=== PATIENT | male | born 1945 | race Caucasian/White ===

== ENCOUNTER 2018-08-06 12:15 | Emergency (ER) | payer MEDICARE, BC ==
[~2018-08-06] VITALS: Wt 113.6 kg
[2018-08-06] MEDS ORDERED: ASPIR LOW81 MG PO (12:28)
[2018-08-06] MEDS ORDERED: CARDURA8 MG PO (12:29)
[2018-08-06] MEDS ORDERED: ALDACTONE 25MG25 MG PO (12:29)
[2018-08-06] MEDS ORDERED: MOBIC15 M1 PO (12:29)
[2018-08-06] MEDS ORDERED: LEVOTHYROXINE0.15 MG PO (12:29)
[2018-08-06] MEDS ORDERED: LOSARTAN POTASS50 M1 PO (12:29)
[2018-08-06] MEDS ORDERED: METFORMIN HCL500 M2 PO (12:30)
[2018-08-06 12:58] LABS: HEMATOCRIT 36.2 % (42.0-52.0); HEMOGLOBIN 12.1 g/dL (13.5-18.0); MEAN CELL VOLUME 87 fl (78-100); MEAN CORPUSCULAR HEMOGLOBIN 29 pg (27-31); MEAN CORPUSCULAR HGB CONC 33 g/dL (33-37); MEAN PLATELET VOLUME 10.1 fl (7.4-10.4); PLATELET COUNT 448 K/mm3 (130-400); RED BLOOD COUNT 4.14 M/mm3 (4.20-5.60); RED CELL DISTRIBUTION WIDTH 14.6 % (11.5-14.5); WHITE BLOOD COUNT 10.5 K/mm3 (4.8-10.8)
[2018-08-06 13:19] LABS: NEUTROPHILS 44 % (42-75)
[2018-08-06 13:20] LABS: LYMPHOCYTE 39 % (20-51); MONOCYTE 13 % (3-10)
[2018-08-06 14:24] VITALS: BP 121/59
== END 2018-08-06 14:25 | disposition home or self-care (01) ==
LOC: ED 12:15
PROVIDERS: Nurse Practitioner
DX: T82.838A Hemorrhage due to vascular prosthetic devices, implants and grafts, initial encounter (principal); E11.9 Type 2 diabetes mellitus without complications; I10 Essential (primary) hypertension; Z79.84 Long term (current) use of oral hypoglycemic drugs; C22.9 Malignant neoplasm of liver, not specified as primary or secondary; Z85.038 Personal history of other malignant neoplasm of large intestine; Z85.828 Personal history of other malignant neoplasm of skin; Z79.82 Long term (current) use of aspirin; Z79.899 Other long term (current) drug therapy; Z87.891 Personal history of nicotine dependence

== ENCOUNTER → 2018-08-08 | Outpatient (CLI) | payer MEDICARE, BC ==
[2018-08-06 14:24] VITALS: BP 121/59
[~2018-08-08] MED LIST: ALDACTONE 25MG25 MG PO; ASPIR LOW81 MG PO; CARDURA8 MG PO; LEVOTHYROXINE0.15 MG PO; LOSARTAN POTASS50 M1 PO; METFORMIN HCL500 M2 PO; MOBIC15 M1 PO
[2018-08-08 15:41] LABS: ALBUMIN 4.1 g/dL (3.5-5.0); CALCIUM 9.2 mg/dL (8.4-10.2); POTASSIUM 5.2 mmol/L (3.6-5.0); TOTAL BILIRUBIN 0.5 mg/dL (0.2-1.3); TOTAL PROTEIN 7.1 g/dL (6.3-8.2)
[2018-08-08 15:57] LABS: HEMOGLOBIN 12.8 g/dL (13.5-18.0); MEAN CELL VOLUME 87 fl (78-100); MEAN CORPUSCULAR HEMOGLOBIN 29 pg (27-31); MEAN CORPUSCULAR HGB CONC 34 g/dL (33-37); MEAN PLATELET VOLUME 10.8 fl (7.4-10.4); RED BLOOD COUNT 4.35 M/mm3 (4.20-5.60); RED CELL DISTRIBUTION WIDTH 14.5 % (11.5-14.5); WHITE BLOOD COUNT 8.9 K/mm3 (4.8-10.8)
[2018-08-08 16:31] LABS: PLATELET COUNT 515 K/mm3 (130-400)
[2018-08-08 16:32] LABS: LYMPHOCYTE 45 % (20-51); MONOCYTE 16 % (3-10); NEUTROPHILS 35 % (42-75)
== END ==
LOC: LAB 14:29
PROVIDERS: Internal Medicine
DX: C18.7 Malignant neoplasm of sigmoid colon (principal)

== ENCOUNTER → 2018-08-21 | Outpatient (CLI) | payer MEDICARE, BC ==
[2018-08-06 14:24] VITALS: BP 121/59
[2018-08-21 16:05] LABS: ALBUMIN 4.1 g/dL (3.5-5.0); BASO # 0.1 (0.02-0.10); CALCIUM 9.4 mg/dL (8.4-10.2); EOS # 0.3 (0.04-0.40); EOS % 2.1 % (0.0-4.0); HEMATOCRIT 39.9 % (42.0-52.0); HEMOGLOBIN 13.4 g/dL (13.5-18.0); MEAN CELL VOLUME 87 fl (78-100); MEAN CORPUSCULAR HEMOGLOBIN 29 pg (27-31); MEAN CORPUSCULAR HGB CONC 34 g/dL (33-37); MEAN PLATELET VOLUME 10.7 fl (7.4-10.4); MONO # 1.3 (0.20-0.80); NEU # 5.6 (1.40-6.50); PLATELET COUNT 494 K/mm3 (130-400); POTASSIUM 4.8 mmol/L (3.6-5.0); RED BLOOD COUNT 4.59 M/mm3 (4.20-5.60); RED CELL DISTRIBUTION WIDTH 14.6 % (11.5-14.5); TOTAL BILIRUBIN 0.4 mg/dL (0.2-1.3); TOTAL PROTEIN 7.1 g/dL (6.3-8.2); WHITE BLOOD COUNT 12.2 K/mm3 (4.8-10.8)
[2018-08-21 16:11] LABS: LYMPH# 4.9 (1.50-4.00)
[2018-08-22 00:20] LABS: CARCINOEMBRYONIC ANTIGEN 5.8 ng/mL (0.0-5.0)
== END ==
LOC: LAB 14:31
PROVIDERS: Internal Medicine
DX: C18.7 Malignant neoplasm of sigmoid colon (principal)

== ENCOUNTER → 2018-09-04 | Outpatient (CLI) | payer MEDICARE, BC ==
[2018-08-06 14:24] VITALS: BP 121/59
[2018-09-04 15:05] LABS: HEMATOCRIT 41.3 % (42.0-52.0); HEMOGLOBIN 13.9 g/dL (13.5-18.0); MEAN CELL VOLUME 88 fl (78-100); MEAN CORPUSCULAR HEMOGLOBIN 30 pg (27-31); MEAN CORPUSCULAR HGB CONC 34 g/dL (33-37); MEAN PLATELET VOLUME 10.1 fl (7.4-10.4); PLATELET COUNT 440 K/mm3 (130-400); RED BLOOD COUNT 4.67 M/mm3 (4.20-5.60); RED CELL DISTRIBUTION WIDTH 15.4 % (11.5-14.5); WHITE BLOOD COUNT 9.3 K/mm3 (4.8-10.8)
[2018-09-04 15:18] LABS: ALBUMIN 4.4 g/dL (3.5-5.0); CALCIUM 9.7 mg/dL (8.4-10.2); POTASSIUM 5.1 mmol/L (3.6-5.0); TOTAL BILIRUBIN 0.5 mg/dL (0.2-1.3); TOTAL PROTEIN 7.3 g/dL (6.3-8.2)
[2018-09-04 16:31] LABS: LYMPHOCYTE 65 % (20-51); MONOCYTE 8 % (3-10); NEUTROPHILS 22 % (42-75)
[2018-09-04 16:33] LABS: POLYCHROMASIA 1+
== END ==
LOC: LAB 14:32
PROVIDERS: Internal Medicine
DX: C18.9 Malignant neoplasm of colon, unspecified (principal)

== ENCOUNTER → 2018-09-18 | Outpatient (CLI) | payer MEDICARE, BC ==
[2018-09-18 15:22] LABS: ALBUMIN 4.2 g/dL (3.5-5.0); CALCIUM 9.1 mg/dL (8.4-10.2); POTASSIUM 4.8 mmol/L (3.6-5.0); TOTAL BILIRUBIN 0.4 mg/dL (0.2-1.3); TOTAL PROTEIN 7.2 g/dL (6.3-8.2)
[2018-09-18 16:22] LABS: BASO # 0.1 (0.02-0.10); EOS # 0.3 (0.04-0.40); EOS % 3.2 % (0.0-4.0); HEMATOCRIT 39.5 % (42.0-52.0); HEMOGLOBIN 13.5 g/dL (13.5-18.0); MEAN CELL VOLUME 89 fl (78-100); MEAN CORPUSCULAR HEMOGLOBIN 30 pg (27-31); MEAN CORPUSCULAR HGB CONC 34 g/dL (33-37); MEAN PLATELET VOLUME 10.4 fl (7.4-10.4); MONO # 1.2 (0.20-0.80); NEU # 3.9 (1.40-6.50); PLATELET COUNT 464 K/mm3 (130-400); RED BLOOD COUNT 4.44 M/mm3 (4.20-5.60); RED CELL DISTRIBUTION WIDTH 16.3 % (11.5-14.5); WHITE BLOOD COUNT 10.4 K/mm3 (4.8-10.8)
[2018-09-18 16:28] LABS: LYMPH# 4.9 (1.50-4.00)
[2018-09-19 03:35] LABS: CARCINOEMBRYONIC ANTIGEN 3.9 ng/mL (0.0-5.0)
== END ==
LOC: LAB 14:38
PROVIDERS: Internal Medicine
DX: C18.9 Malignant neoplasm of colon, unspecified (principal)

== ENCOUNTER → 2018-10-02 | Outpatient (CLI) | payer MEDICARE, BC ==
[2018-10-02 15:15] LABS: HEMATOCRIT 40.3 % (42.0-52.0); HEMOGLOBIN 13.4 g/dL (13.5-18.0); MEAN CELL VOLUME 91 fl (78-100); MEAN CORPUSCULAR HEMOGLOBIN 30 pg (27-31); MEAN CORPUSCULAR HGB CONC 33 g/dL (33-37); MEAN PLATELET VOLUME 9.9 fl (7.4-10.4); PLATELET COUNT 448 K/mm3 (130-400); RED BLOOD COUNT 4.45 M/mm3 (4.20-5.60); RED CELL DISTRIBUTION WIDTH 17.1 % (11.5-14.5); WHITE BLOOD COUNT 10.4 K/mm3 (4.8-10.8)
[2018-10-02 15:22] LABS: ALBUMIN 4.3 g/dL (3.5-5.0); CALCIUM 9.6 mg/dL (8.4-10.2); POTASSIUM 4.8 mmol/L (3.6-5.0); TOTAL BILIRUBIN 0.4 mg/dL (0.2-1.3); TOTAL PROTEIN 7.1 g/dL (6.3-8.2)
[2018-10-02 16:08] LABS: NEUTROPHILS 18 % (42-75)
[2018-10-02 16:09] LABS: LYMPHOCYTE 60 % (20-51); MONOCYTE 18 % (3-10); POLYCHROMASIA 1+
== END ==
LOC: LAB 14:28
PROVIDERS: Internal Medicine
DX: C18.9 Malignant neoplasm of colon, unspecified (principal)

== ENCOUNTER → 2018-10-17 | Outpatient (CLI) | payer MEDICARE, BC ==
[2018-10-17 16:00] LABS: HEMATOCRIT 39.8 % (42.0-52.0); HEMOGLOBIN 13.4 g/dL (13.5-18.0); MEAN CELL VOLUME 92 fl (78-100); MEAN CORPUSCULAR HEMOGLOBIN 31 pg (27-31); MEAN CORPUSCULAR HGB CONC 34 g/dL (33-37); MEAN PLATELET VOLUME 10.4 fl (7.4-10.4); PLATELET COUNT 402 K/mm3 (130-400); RED BLOOD COUNT 4.34 M/mm3 (4.20-5.60); RED CELL DISTRIBUTION WIDTH 18.2 % (11.5-14.5); WHITE BLOOD COUNT 9.4 K/mm3 (4.8-10.8)
[2018-10-17 16:42] LABS: ALBUMIN 4.2 g/dL (3.5-5.0); CALCIUM 9.9 mg/dL (8.4-10.2); POTASSIUM 4.9 mmol/L (3.6-5.0); TOTAL BILIRUBIN 0.2 mg/dL (0.2-1.3); TOTAL PROTEIN 6.5 g/dL (6.3-8.2)
[2018-10-17 18:09] LABS: LYMPHOCYTE 54 % (20-51); MONOCYTE 10 % (3-10); NEUTROPHILS 34 % (42-75)
[2018-10-18 01:08] LABS: CARCINOEMBRYONIC ANTIGEN 2.7 ng/mL (0.0-5.0)
== END ==
LOC: LAB 15:11
PROVIDERS: Internal Medicine
DX: C18.9 Malignant neoplasm of colon, unspecified (principal)

== ENCOUNTER → 2018-10-30 | Outpatient (CLI) | payer MEDICARE, BC ==
[2018-10-30 15:56] LABS: HEMATOCRIT 40.9 % (42.0-52.0); HEMOGLOBIN 13.6 g/dL (13.5-18.0); MEAN CELL VOLUME 93 fl (78-100); MEAN CORPUSCULAR HEMOGLOBIN 31 pg (27-31); MEAN CORPUSCULAR HGB CONC 33 g/dL (33-37); MEAN PLATELET VOLUME 10.2 fl (7.4-10.4); PLATELET COUNT 419 K/mm3 (130-400); RED BLOOD COUNT 4.41 M/mm3 (4.20-5.60); RED CELL DISTRIBUTION WIDTH 18.2 % (11.5-14.5); WHITE BLOOD COUNT 9.6 K/mm3 (4.8-10.8)
[2018-10-30 17:04] LABS: ALBUMIN 4.3 g/dL (3.5-5.0); CALCIUM 9.6 mg/dL (8.4-10.2); POTASSIUM 4.5 mmol/L (3.6-5.0); TOTAL BILIRUBIN 0.2 mg/dL (0.2-1.3); TOTAL PROTEIN 7.1 g/dL (6.3-8.2)
[2018-10-30 17:15] LABS: LYMPHOCYTE 60 % (20-51); MONOCYTE 10 % (3-10); NEUTROPHILS 28 % (42-75); NUCLEATED RED BLOOD CELL 4 (0-6)
== END ==
LOC: LAB 15:18
PROVIDERS: Internal Medicine
DX: C18.9 Malignant neoplasm of colon, unspecified (principal)

== ENCOUNTER → 2018-11-11 | Outpatient (CLI) | payer MEDICARE, BC ==
[2018-11-11 10:31] LABS: HEMATOCRIT 40.3 % (42.0-52.0); HEMOGLOBIN 13.3 g/dL (13.5-18.0); MEAN CELL VOLUME 93 fl (78-100); MEAN CORPUSCULAR HEMOGLOBIN 31 pg (27-31); MEAN CORPUSCULAR HGB CONC 33 g/dL (33-37); MEAN PLATELET VOLUME 11.1 fl (7.4-10.4); PLATELET COUNT 375 K/mm3 (130-400); RED BLOOD COUNT 4.34 M/mm3 (4.20-5.60); RED CELL DISTRIBUTION WIDTH 17.4 % (11.5-14.5); WHITE BLOOD COUNT 9.3 K/mm3 (4.8-10.8)
[2018-11-11 10:36] LABS: ALBUMIN 4.1 g/dL (3.5-5.0); CALCIUM 9.3 mg/dL (8.4-10.2); POTASSIUM 4.5 mmol/L (3.6-5.0); TOTAL BILIRUBIN 0.4 mg/dL (0.2-1.3); TOTAL PROTEIN 6.7 g/dL (6.3-8.2)
[2018-11-11 11:22] LABS: BAND 1 % (0-10); LYMPHOCYTE 38 % (20-51); MONOCYTE 4 % (3-10); NEUTROPHILS 53 % (42-75)
[2018-11-11 11:23] LABS: ACANTHROCYTES 2+; OVALOCYTES 1+; TARGET CELLS 1+
== END ==
LOC: RAD 08:00
PROVIDERS: Internal Medicine
DX: R91.8 Other nonspecific abnormal finding of lung field (principal); K76.9 Liver disease, unspecified; E27.9 Disorder of adrenal gland, unspecified; Z85.038 Personal history of other malignant neoplasm of large intestine; Z90.49 Acquired absence of other specified parts of digestive tract; E11.9 Type 2 diabetes mellitus without complications; C22.9 Malignant neoplasm of liver, not specified as primary or secondary; Z95.828 Presence of other vascular implants and grafts
CPT/HCPCS: Q9967

== ENCOUNTER → 2018-11-27 | Outpatient (CLI) | payer MEDICARE, BC ==
[2018-11-27 14:56] LABS: BASO # 0.1 (0.02-0.10); EOS # 0.5 (0.04-0.40); EOS % 4.3 % (0.0-4.0); HEMATOCRIT 39.8 % (42.0-52.0); HEMOGLOBIN 13.6 g/dL (13.5-18.0); MEAN CELL VOLUME 92 fl (78-100); MEAN CORPUSCULAR HEMOGLOBIN 31 pg (27-31); MEAN CORPUSCULAR HGB CONC 34 g/dL (33-37); MEAN PLATELET VOLUME 9.9 fl (7.4-10.4); MONO # 1.1 (0.20-0.80); NEU # 4.8 (1.40-6.50); PLATELET COUNT 454 K/mm3 (130-400); RED BLOOD COUNT 4.33 M/mm3 (4.20-5.60); RED CELL DISTRIBUTION WIDTH 16.8 % (11.5-14.5); WHITE BLOOD COUNT 11.1 K/mm3 (4.8-10.8)
[2018-11-27 14:59] LABS: LYMPH# 4.6 (1.50-4.00)
[2018-11-27 15:21] LABS: ALBUMIN 4.2 g/dL (3.5-5.0); CALCIUM 9.6 mg/dL (8.4-10.2); POTASSIUM 4.4 mmol/L (3.6-5.0); TOTAL BILIRUBIN 0.3 mg/dL (0.2-1.3)
== END ==
LOC: LAB 14:31
PROVIDERS: Internal Medicine
DX: C18.9 Malignant neoplasm of colon, unspecified (principal); C78.7 Secondary malignant neoplasm of liver and intrahepatic bile duct

== ENCOUNTER → 2018-12-11 | Outpatient (CLI) | payer MEDICARE, BC ==
[2018-12-11 10:33] LABS: HEMATOCRIT 40.2 % (42.0-52.0); HEMOGLOBIN 13.4 g/dL (13.5-18.0); MEAN CELL VOLUME 92 fl (78-100); MEAN CORPUSCULAR HEMOGLOBIN 31 pg (27-31); MEAN CORPUSCULAR HGB CONC 33 g/dL (33-37); MEAN PLATELET VOLUME 10.3 fl (7.4-10.4); PLATELET COUNT 413 K/mm3 (130-400); RED BLOOD COUNT 4.36 M/mm3 (4.20-5.60); RED CELL DISTRIBUTION WIDTH 16.5 % (11.5-14.5); WHITE BLOOD COUNT 7.6 K/mm3 (4.8-10.8)
[2018-12-11 10:39] LABS: ALBUMIN 4.2 g/dL (3.5-5.0); CALCIUM 9.5 mg/dL (8.4-10.2); POTASSIUM 4.1 mmol/L (3.6-5.0); TOTAL BILIRUBIN 0.3 mg/dL (0.2-1.3)
[2018-12-11 11:00] LABS: ACANTHROCYTES 1+; BAND 0 % (0-10); LYMPHOCYTE 42 % (20-51); MONOCYTE 10 % (3-10); NEUTROPHILS 34 % (42-75); OVALOCYTES 1+; TARGET CELLS 1+
[2018-12-11 23:51] LABS: CARCINOEMBRYONIC ANTIGEN 2.2 ng/mL (0.0-5.0)
== END ==
LOC: LAB 10:11
PROVIDERS: Internal Medicine
DX: C18.7 Malignant neoplasm of sigmoid colon (principal); C78.7 Secondary malignant neoplasm of liver and intrahepatic bile duct; C83.38 Diffuse large B-cell lymphoma, lymph nodes of multiple sites

== ENCOUNTER → 2018-12-26 | Outpatient (CLI) | payer MEDICARE, BC ==
[2018-12-26 15:48] LABS: ALBUMIN 4.2 g/dL (3.5-5.0); CALCIUM 9.3 mg/dL (8.4-10.2); POTASSIUM 4.5 mmol/L (3.6-5.0); TOTAL BILIRUBIN 0.3 mg/dL (0.2-1.3); TOTAL PROTEIN 7.1 g/dL (6.3-8.2)
[2018-12-26 16:53] LABS: HEMATOCRIT 40.4 % (42.0-52.0); HEMOGLOBIN 13.2 g/dL (13.5-18.0); MEAN CELL VOLUME 93 fl (78-100); MEAN CORPUSCULAR HEMOGLOBIN 30 pg (27-31); MEAN CORPUSCULAR HGB CONC 33 g/dL (33-37); MEAN PLATELET VOLUME 11.1 fl (7.4-10.4); PLATELET COUNT 431 K/mm3 (130-400); RED BLOOD COUNT 4.35 M/mm3 (4.20-5.60); RED CELL DISTRIBUTION WIDTH 15.9 % (11.5-14.5); WHITE BLOOD COUNT 8.9 K/mm3 (4.8-10.8)
[2018-12-26 19:32] LABS: LYMPHOCYTE 48 % (20-51); MONOCYTE 12 % (3-10); NEUTROPHILS 36 % (42-75)
== END ==
LOC: LAB 14:27
PROVIDERS: Internal Medicine
DX: C18.7 Malignant neoplasm of sigmoid colon (principal); Z85.038 Personal history of other malignant neoplasm of large intestine

== ENCOUNTER → 2019-01-08 | Outpatient (CLI) | payer MEDICARE, BC ==
[2019-01-08 13:59] LABS: HEMOGLOBIN 13.3 g/dL (13.5-18.0); MEAN CELL VOLUME 92 fl (78-100); MEAN CORPUSCULAR HEMOGLOBIN 31 pg (27-31); MEAN CORPUSCULAR HGB CONC 33 g/dL (33-37); MEAN PLATELET VOLUME 10.4 fl (7.4-10.4); PLATELET COUNT 399 K/mm3 (130-400); RED BLOOD COUNT 4.34 M/mm3 (4.20-5.60); RED CELL DISTRIBUTION WIDTH 15.3 % (11.5-14.5)
[2019-01-08 14:01] LABS: ALBUMIN 4.2 g/dL (3.5-5.0); CALCIUM 9.3 mg/dL (8.4-10.2); TOTAL BILIRUBIN 0.3 mg/dL (0.2-1.3)
[2019-01-08 14:28] LABS: BAND 1 % (0-10); MONOCYTE 10 % (3-10); NEUTROPHILS 28 % (42-75)
[2019-01-08 14:29] LABS: HYPOCHROMIA 1+; LYMPHOCYTE 52 % (20-51); POLYCHROMASIA 1+
[2019-01-09 00:36] LABS: CARCINOEMBRYONIC ANTIGEN 1.7 ng/mL (0.0-5.0)
== END ==
LOC: LAB 13:23
PROVIDERS: Internal Medicine
DX: C18.7 Malignant neoplasm of sigmoid colon (principal); C78.7 Secondary malignant neoplasm of liver and intrahepatic bile duct; Z85.038 Personal history of other malignant neoplasm of large intestine

== ENCOUNTER → 2019-01-23 | Outpatient (CLI) | payer MEDICARE, BC ==
[2019-01-23 15:28] LABS: ALBUMIN 4.2 g/dL (3.5-5.0); CALCIUM 9.2 mg/dL (8.4-10.2); POTASSIUM 4.8 mmol/L (3.6-5.0); TOTAL BILIRUBIN 0.3 mg/dL (0.2-1.3); TOTAL PROTEIN 7.1 g/dL (6.3-8.2)
[2019-01-23 15:56] LABS: HEMATOCRIT 39.1 % (42.0-52.0); HEMOGLOBIN 12.9 g/dL (13.5-18.0); MEAN CELL VOLUME 92 fl (78-100); MEAN CORPUSCULAR HEMOGLOBIN 31 pg (27-31); MEAN CORPUSCULAR HGB CONC 33 g/dL (33-37); MEAN PLATELET VOLUME 10.6 fl (7.4-10.4); PLATELET COUNT 458 K/mm3 (130-400); RED BLOOD COUNT 4.23 M/mm3 (4.20-5.60); RED CELL DISTRIBUTION WIDTH 15.9 % (11.5-14.5); WHITE BLOOD COUNT 9.1 K/mm3 (4.8-10.8)
[2019-01-23 22:30] LABS: LYMPHOCYTE 57 % (20-51); MONOCYTE 10 % (3-10); NEUTROPHILS 32 % (42-75)
== END ==
LOC: LAB 14:26
PROVIDERS: Internal Medicine
DX: C18.7 Malignant neoplasm of sigmoid colon (principal); C78.7 Secondary malignant neoplasm of liver and intrahepatic bile duct

== ENCOUNTER → 2019-02-03 | Outpatient (CLI) | payer MEDICARE, BC | LOC: RAD 09:01 | DX: C18.7 Malignant neoplasm of sigmoid colon (principal); I26.99 Other pulmonary embolism without acute cor pulmonale; J92.9 Pleural plaque without asbestos; R16.0 Hepatomegaly, not elsewhere classified; D35.00 Benign neoplasm of unspecified adrenal gland; R59.0 Localized enlarged lymph nodes; Z90.81 Acquired absence of spleen; Z95.828 Presence of other vascular implants and grafts | CPT/HCPCS: Q9967 ==

== ENCOUNTER → 2019-02-06 | Outpatient (CLI) | payer MEDICARE, BC ==
[2019-02-06 15:12] LABS: HEMATOCRIT 39.9 % (42.0-52.0); HEMOGLOBIN 13.2 g/dL (13.5-18.0); MEAN CELL VOLUME 92 fl (78-100); MEAN CORPUSCULAR HEMOGLOBIN 30 pg (27-31); MEAN CORPUSCULAR HGB CONC 33 g/dL (33-37); PLATELET COUNT 423 K/mm3 (130-400); RED BLOOD COUNT 4.34 M/mm3 (4.20-5.60); RED CELL DISTRIBUTION WIDTH 16.4 % (11.5-14.5); WHITE BLOOD COUNT 9.5 K/mm3 (4.8-10.8)
[2019-02-06 16:53] LABS: ALBUMIN 4.2 g/dL (3.5-5.0); CALCIUM 9.7 mg/dL (8.4-10.2); POTASSIUM 4.2 mmol/L (3.6-5.0); TOTAL BILIRUBIN 0.3 mg/dL (0.2-1.3)
[2019-02-06 18:13] LABS: LYMPHOCYTE 53 % (20-51); MONOCYTE 9 % (3-10); NEUTROPHILS 34 % (42-75)
== END ==
LOC: LAB 14:52
PROVIDERS: Family Medicine
DX: C18.9 Malignant neoplasm of colon, unspecified (principal); C78.7 Secondary malignant neoplasm of liver and intrahepatic bile duct

== ENCOUNTER → 2019-02-26 | Outpatient (CLI) | payer MEDICARE, BC ==
[2019-02-26 16:04] LABS: HEMATOCRIT 41.9 % (42.0-52.0); HEMOGLOBIN 13.7 g/dL (13.5-18.0); MEAN CELL VOLUME 93 fl (78-100); MEAN CORPUSCULAR HEMOGLOBIN 30 pg (27-31); MEAN CORPUSCULAR HGB CONC 33 g/dL (33-37); MEAN PLATELET VOLUME 9.8 fl (7.4-10.4); PLATELET COUNT 369 K/mm3 (130-400); RED CELL DISTRIBUTION WIDTH 17.6 % (11.5-14.5); WHITE BLOOD COUNT 10.5 K/mm3 (4.8-10.8)
[2019-02-26 16:17] LABS: ALBUMIN 4.1 g/dL (3.5-5.0); CALCIUM 9.2 mg/dL (8.4-10.2); POTASSIUM 4.2 mmol/L (3.6-5.0); TOTAL BILIRUBIN 0.3 mg/dL (0.2-1.3); TOTAL PROTEIN 7.1 g/dL (6.3-8.2)
[2019-02-26 17:14] LABS: LYMPHOCYTE 34 % (20-51); MONOCYTE 11 % (3-10); NEUTROPHILS 47 % (42-75)
== END ==
LOC: LAB 15:42
PROVIDERS: Family Medicine
DX: C18.7 Malignant neoplasm of sigmoid colon (principal); C78.7 Secondary malignant neoplasm of liver and intrahepatic bile duct

== ENCOUNTER → 2019-03-20 | Outpatient (CLI) | payer MEDICARE, BC ==
[2019-03-20 15:36] LABS: HEMATOCRIT 42.5 % (42.0-52.0); HEMOGLOBIN 13.8 g/dL (13.5-18.0); MEAN PLATELET VOLUME 10.8 fl (7.4-10.4); RED BLOOD COUNT 4.64 M/mm3 (4.20-5.60); RED CELL DISTRIBUTION WIDTH 17.4 % (11.5-14.5); WHITE BLOOD COUNT 8.8 K/mm3 (4.8-10.8)
[2019-03-20 15:57] LABS: ALBUMIN 4.5 g/dL (3.5-5.0); CALCIUM 9.4 mg/dL (8.4-10.2); POTASSIUM 4.5 mmol/L (3.6-5.0); TOTAL BILIRUBIN 0.4 mg/dL (0.2-1.3); TOTAL PROTEIN 7.5 g/dL (6.3-8.2)
== END ==
LOC: LAB 14:48
PROVIDERS: Internal Medicine
DX: C18.7 Malignant neoplasm of sigmoid colon (principal)

== ENCOUNTER → 2019-04-09 | Outpatient (CLI) | payer MEDICARE, BC ==
[2019-04-09 15:59] LABS: HEMATOCRIT 41.5 % (42.0-52.0); HEMOGLOBIN 13.4 g/dL (13.5-18.0); MEAN CELL VOLUME 92 fl (78-100); MEAN CORPUSCULAR HEMOGLOBIN 30 pg (27-31); MEAN CORPUSCULAR HGB CONC 32 g/dL (33-37); MEAN PLATELET VOLUME 10.2 fl (7.4-10.4); PLATELET COUNT 376 K/mm3 (130-400); RED CELL DISTRIBUTION WIDTH 17.1 % (11.5-14.5); WHITE BLOOD COUNT 7.7 K/mm3 (4.8-10.8)
[2019-04-09 16:13] LABS: CALCIUM 9.8 mg/dL (8.8-10.0); POTASSIUM 4.2 mmol/L (3.5-5.1); TOTAL BILIRUBIN 0.2 mg/dL (0.2-1.2); TOTAL PROTEIN 6.8 g/dL (6.2-8.1)
[2019-04-09 17:27] LABS: LYMPHOCYTE 58 % (20-51); MONOCYTE 12 % (3-10); NEUTROPHILS 29 % (42-75)
== END ==
LOC: LAB 15:35
PROVIDERS: Internal Medicine
DX: C18.9 Malignant neoplasm of colon, unspecified (principal); C78.7 Secondary malignant neoplasm of liver and intrahepatic bile duct

== ENCOUNTER → 2019-05-01 | Outpatient (CLI) | payer MEDICARE, BC ==
[2019-05-01 15:07] LABS: BASO # 0.1 (0.02-0.10); EOS # 0.3 (0.04-0.40); EOS % 4.4 % (0.0-4.0); HEMATOCRIT 42.1 % (42.0-52.0); HEMOGLOBIN 13.6 g/dL (13.5-18.0); LYMPH# 3.7 (1.50-4.00); MEAN CELL VOLUME 92 fl (78-100); MEAN CORPUSCULAR HEMOGLOBIN 30 pg (27-31); MEAN CORPUSCULAR HGB CONC 32 g/dL (33-37); MEAN PLATELET VOLUME 10.8 fl (7.4-10.4); MONO # 0.9 (0.20-0.80); NEU # 2.5 (1.40-6.50); PLATELET COUNT 367 K/mm3 (130-400); RED BLOOD COUNT 4.57 M/mm3 (4.20-5.60); RED CELL DISTRIBUTION WIDTH 16.7 % (11.5-14.5); WHITE BLOOD COUNT 7.4 K/mm3 (4.8-10.8)
[2019-05-01 15:19] LABS: ALBUMIN 3.9 g/dL (3.4-4.8); CALCIUM 9.7 mg/dL (8.3-10.5); POTASSIUM 4.9 mmol/L (3.5-5.1); TOTAL BILIRUBIN 0.3 mg/dL (0.2-1.2); TOTAL PROTEIN 6.6 g/dL (6.2-8.1)
== END ==
LOC: LAB 14:15
PROVIDERS: Internal Medicine
DX: C18.7 Malignant neoplasm of sigmoid colon (principal); C78.7 Secondary malignant neoplasm of liver and intrahepatic bile duct

== ENCOUNTER → 2019-05-22 | Outpatient (CLI) | payer MEDICARE, BC ==
[2019-05-22 11:10] LABS: EOS # 0.2 (0.04-0.40); EOS % 3.4 % (0.0-4.0); HEMATOCRIT 42.2 % (42.0-52.0); LYMPH# 3.1 (1.50-4.00); MEAN CELL VOLUME 91 fl (78-100); MEAN CORPUSCULAR HEMOGLOBIN 30 pg (27-31); MEAN CORPUSCULAR HGB CONC 33 g/dL (33-37); MEAN PLATELET VOLUME 10.3 fl (7.4-10.4); MONO # 1.1 (0.20-0.80); NEU # 2.3 (1.40-6.50); PLATELET COUNT 367 K/mm3 (130-400); RED BLOOD COUNT 4.65 M/mm3 (4.20-5.60); RED CELL DISTRIBUTION WIDTH 16.1 % (11.5-14.5); WHITE BLOOD COUNT 6.7 K/mm3 (4.8-10.8)
[2019-05-22 11:11] LABS: ALBUMIN 3.9 g/dL (3.4-4.8); CALCIUM 9.4 mg/dL (8.3-10.5); POTASSIUM 4.5 mmol/L (3.5-5.1); TOTAL BILIRUBIN 0.5 mg/dL (0.2-1.2); TOTAL PROTEIN 6.9 g/dL (6.2-8.1)
== END ==
LOC: LAB 09:57
PROVIDERS: Internal Medicine
DX: C18.7 Malignant neoplasm of sigmoid colon (principal); C78.7 Secondary malignant neoplasm of liver and intrahepatic bile duct

== ENCOUNTER → 2019-06-12 | Outpatient (CLI) | payer MEDICARE, BC ==
[2019-06-12 16:02] LABS: HEMATOCRIT 42.4 % (42.0-52.0); HEMOGLOBIN 13.8 g/dL (13.5-18.0); MEAN CELL VOLUME 91 fl (78-100); MEAN CORPUSCULAR HEMOGLOBIN 30 pg (27-31); MEAN CORPUSCULAR HGB CONC 33 g/dL (33-37); MEAN PLATELET VOLUME 10.9 fl (7.4-10.4); PLATELET COUNT 362 K/mm3 (130-400); RED BLOOD COUNT 4.68 M/mm3 (4.20-5.60); RED CELL DISTRIBUTION WIDTH 16.2 % (11.5-14.5); WHITE BLOOD COUNT 10.3 K/mm3 (4.8-10.8)
[2019-06-12 16:13] LABS: ALBUMIN 4.2 g/dL (3.4-4.8)
[2019-06-12 16:14] LABS: POTASSIUM 4.4 mmol/L (3.5-5.1)
[2019-06-12 16:15] LABS: CALCIUM 9.7 mg/dL (8.3-10.5)
[2019-06-12 16:18] LABS: TOTAL BILIRUBIN 0.5 mg/dL (0.2-1.2)
[2019-06-12 17:23] LABS: NEUTROPHILS 52 % (42-75)
[2019-06-12 17:24] LABS: LYMPHOCYTE 35 % (20-51); MONOCYTE 10 % (3-10)
== END ==
LOC: LAB 15:20
PROVIDERS: Internal Medicine
DX: C18.7 Malignant neoplasm of sigmoid colon (principal); C78.7 Secondary malignant neoplasm of liver and intrahepatic bile duct

== ENCOUNTER → 2019-07-03 | Outpatient (CLI) | payer MEDICARE, BC ==
[2019-07-03 16:37] LABS: HEMATOCRIT 42.9 % (42.0-52.0); HEMOGLOBIN 14.2 g/dL (13.5-18.0); MEAN CELL VOLUME 90 fl (78-100); MEAN CORPUSCULAR HEMOGLOBIN 30 pg (27-31); MEAN CORPUSCULAR HGB CONC 33 g/dL (33-37); MEAN PLATELET VOLUME 10.2 fl (7.4-10.4); PLATELET COUNT 359 K/mm3 (130-400); RED BLOOD COUNT 4.78 M/mm3 (4.20-5.60); RED CELL DISTRIBUTION WIDTH 16.3 % (11.5-14.5); WHITE BLOOD COUNT 8.8 K/mm3 (4.8-10.8)
[2019-07-03 16:45] LABS: ALBUMIN 4.4 g/dL (3.4-4.8); POTASSIUM 4.7 mmol/L (3.5-5.1)
[2019-07-03 16:46] LABS: CALCIUM 10.2 mg/dL (8.3-10.5)
[2019-07-03 16:47] LABS: TOTAL PROTEIN 7.9 g/dL (6.2-8.1)
[2019-07-03 16:49] LABS: TOTAL BILIRUBIN 0.3 mg/dL (0.2-1.2)
[2019-07-03 17:05] LABS: LYMPHOCYTE 37 % (20-51); MONOCYTE 11 % (3-10); NEUTROPHILS 50 % (42-75)
== END ==
LOC: LAB 16:16
PROVIDERS: Internal Medicine
DX: C18.7 Malignant neoplasm of sigmoid colon (principal); C78.7 Secondary malignant neoplasm of liver and intrahepatic bile duct

== ENCOUNTER → 2019-07-24 | Outpatient (CLI) | payer MEDICARE, BC ==
[2019-07-24 15:19] LABS: HEMATOCRIT 40.2 % (42.0-52.0); HEMOGLOBIN 13.3 g/dL (13.5-18.0); MEAN CELL VOLUME 90 fl (78-100); MEAN CORPUSCULAR HEMOGLOBIN 30 pg (27-31); MEAN CORPUSCULAR HGB CONC 33 g/dL (33-37); MEAN PLATELET VOLUME 10.5 fl (7.4-10.4); PLATELET COUNT 356 K/mm3 (130-400); RED BLOOD COUNT 4.47 M/mm3 (4.20-5.60); RED CELL DISTRIBUTION WIDTH 16.1 % (11.5-14.5); WHITE BLOOD COUNT 11.6 K/mm3 (4.8-10.8)
[2019-07-24 16:02] LABS: LYMPHOCYTE 39 % (20-51); MONOCYTE 10 % (3-10); NEUTROPHILS 48 % (42-75)
[2019-07-24 16:15] LABS: ALBUMIN 4.3 g/dL (3.4-4.8)
[2019-07-24 16:18] LABS: TOTAL PROTEIN 6.7 g/dL (6.2-8.1)
[2019-07-24 16:20] LABS: TOTAL BILIRUBIN 0.4 mg/dL (0.2-1.2)
== END ==
LOC: LAB 14:54
PROVIDERS: Internal Medicine
DX: C18.7 Malignant neoplasm of sigmoid colon (principal); C78.7 Secondary malignant neoplasm of liver and intrahepatic bile duct

== ENCOUNTER → 2019-08-14 | Outpatient (CLI) | payer MEDICARE, BC ==
[2019-08-14 15:54] LABS: HEMATOCRIT 40.9 % (42.0-52.0); HEMOGLOBIN 13.6 g/dL (13.5-18.0); MEAN CELL VOLUME 91 fl (78-100); MEAN CORPUSCULAR HEMOGLOBIN 30 pg (27-31); MEAN CORPUSCULAR HGB CONC 33 g/dL (33-37); MEAN PLATELET VOLUME 10.8 fl (7.4-10.4); PLATELET COUNT 351 K/mm3 (130-400); RED CELL DISTRIBUTION WIDTH 16.6 % (11.5-14.5); WHITE BLOOD COUNT 9.9 K/mm3 (4.8-10.8)
[2019-08-14 16:03] LABS: ALBUMIN 4.3 g/dL (3.4-4.8)
[2019-08-14 16:04] LABS: POTASSIUM 4.8 mmol/L (3.5-5.1)
[2019-08-14 16:05] LABS: CALCIUM 9.8 mg/dL (8.3-10.5)
[2019-08-14 16:06] LABS: TOTAL PROTEIN 7.2 g/dL (6.2-8.1)
[2019-08-14 16:08] LABS: TOTAL BILIRUBIN 0.5 mg/dL (0.2-1.2)
[2019-08-14 16:10] LABS: LYMPHOCYTE 40 % (20-51); MONOCYTE 17 % (3-10); NEUTROPHILS 39 % (42-75)
== END ==
LOC: LAB 15:27
PROVIDERS: Internal Medicine
DX: C22.7 Other specified carcinomas of liver (principal)

== ENCOUNTER → 2019-09-04 | Outpatient (CLI) | payer MEDICARE, BC ==
[2019-09-04 16:49] LABS: ALBUMIN 4.3 g/dL (3.4-4.8)
[2019-09-04 16:50] LABS: HEMATOCRIT 41.4 % (42.0-52.0); HEMOGLOBIN 13.7 g/dL (13.5-18.0); MEAN CELL VOLUME 91 fl (78-100); MEAN CORPUSCULAR HEMOGLOBIN 30 pg (27-31); MEAN CORPUSCULAR HGB CONC 33 g/dL (33-37); MEAN PLATELET VOLUME 11.1 fl (7.4-10.4); PLATELET COUNT 373 K/mm3 (130-400); POTASSIUM 4.6 mmol/L (3.5-5.1); RED BLOOD COUNT 4.56 M/mm3 (4.20-5.60); RED CELL DISTRIBUTION WIDTH 16.1 % (11.5-14.5); WHITE BLOOD COUNT 8.2 K/mm3 (4.8-10.8)
[2019-09-04 16:51] LABS: CALCIUM 9.7 mg/dL (8.3-10.5)
[2019-09-04 16:52] LABS: TOTAL PROTEIN 7.1 g/dL (6.2-8.1)
[2019-09-04 16:54] LABS: TOTAL BILIRUBIN 0.3 mg/dL (0.2-1.2)
[2019-09-04 17:17] LABS: LYMPHOCYTE 40 % (20-51); MONOCYTE 15 % (3-10); NEUTROPHILS 42 % (42-75)
== END ==
LOC: LAB 15:52
PROVIDERS: Internal Medicine
DX: C18.7 Malignant neoplasm of sigmoid colon (principal)

== ENCOUNTER → 2019-09-25 | Outpatient (CLI) | payer MEDICARE, BC ==
[2019-09-25 16:29] LABS: HEMATOCRIT 40.1 % (42.0-52.0); HEMOGLOBIN 13.5 g/dL (13.5-18.0); MEAN CELL VOLUME 92 fl (78-100); MEAN CORPUSCULAR HEMOGLOBIN 31 pg (27-31); MEAN CORPUSCULAR HGB CONC 34 g/dL (33-37); MEAN PLATELET VOLUME 10.6 fl (7.4-10.4); PLATELET COUNT 335 K/mm3 (130-400); RED BLOOD COUNT 4.38 M/mm3 (4.20-5.60); RED CELL DISTRIBUTION WIDTH 15.9 % (11.5-14.5); WHITE BLOOD COUNT 11.9 K/mm3 (4.8-10.8)
[2019-09-25 16:38] LABS: ALBUMIN 4.1 g/dL (3.4-4.8)
[2019-09-25 16:39] LABS: POTASSIUM 4.7 mmol/L (3.5-5.1)
[2019-09-25 16:40] LABS: CALCIUM 9.7 mg/dL (8.3-10.5)
[2019-09-25 16:41] LABS: TOTAL PROTEIN 7.2 g/dL (6.2-8.1)
[2019-09-25 16:43] LABS: TOTAL BILIRUBIN 0.4 mg/dL (0.2-1.2)
[2019-09-25 17:30] LABS: LYMPHOCYTE 27 % (20-51); MONOCYTE 10 % (3-10); NEUTROPHILS 58 % (42-75)
== END ==
LOC: LAB 15:51
PROVIDERS: Internal Medicine
DX: C18.7 Malignant neoplasm of sigmoid colon (principal); C78.7 Secondary malignant neoplasm of liver and intrahepatic bile duct

== ENCOUNTER → 2019-10-16 | Outpatient (CLI) | payer MEDICARE, BC ==
[2019-10-16 16:25] LABS: ALBUMIN 4.4 g/dL (3.4-4.8); POTASSIUM 4.6 mmol/L (3.5-5.1)
[2019-10-16 16:28] LABS: HEMATOCRIT 43.6 % (42.0-52.0); HEMOGLOBIN 14.2 g/dL (13.5-18.0); MEAN CELL VOLUME 93 fl (78-100); MEAN CORPUSCULAR HEMOGLOBIN 30 pg (27-31); MEAN CORPUSCULAR HGB CONC 33 g/dL (33-37); MEAN PLATELET VOLUME 10.8 fl (7.4-10.4); PLATELET COUNT 382 K/mm3 (130-400); RED CELL DISTRIBUTION WIDTH 15.8 % (11.5-14.5); TOTAL PROTEIN 7.4 g/dL (6.2-8.1); WHITE BLOOD COUNT 10.7 K/mm3 (4.8-10.8)
[2019-10-16 16:29] LABS: TOTAL BILIRUBIN 0.4 mg/dL (0.2-1.2)
[2019-10-16 17:12] LABS: LYMPHOCYTE 45 % (20-51); MONOCYTE 12 % (3-10); NEUTROPHILS 40 % (42-75)
[2019-10-17 17:33] LABS: CARCINOEMBRYONIC ANTIGEN 5.6 ng/mL (0.0-5.0)
== END ==
LOC: LAB 15:45
PROVIDERS: Internal Medicine
DX: C18.7 Malignant neoplasm of sigmoid colon (principal); C78.7 Secondary malignant neoplasm of liver and intrahepatic bile duct

== ENCOUNTER → 2019-11-16 | Outpatient (CLI) | payer MEDICARE, BC | LOC: LAB 16:00 | PROVIDERS: Internal Medicine | DX: C18.7 Malignant neoplasm of sigmoid colon (principal) ==

== ENCOUNTER → 2019-11-27 | Outpatient (CLI) | payer MEDICARE, BC ==
[2019-11-27 14:34] LABS: HEMATOCRIT 42.2 % (42.0-52.0); HEMOGLOBIN 13.9 g/dL (13.5-18.0); MEAN CELL VOLUME 90 fl (78-100); MEAN CORPUSCULAR HEMOGLOBIN 30 pg (27-31); MEAN CORPUSCULAR HGB CONC 33 g/dL (33-37); MEAN PLATELET VOLUME 10.9 fl (7.4-10.4); PLATELET COUNT 391 K/mm3 (130-400); RED BLOOD COUNT 4.67 M/mm3 (4.20-5.60); RED CELL DISTRIBUTION WIDTH 15.1 % (11.5-14.5); WHITE BLOOD COUNT 11.4 K/mm3 (4.8-10.8)
[2019-11-27 14:38] LABS: ALBUMIN 4.2 g/dL (3.4-4.8)
[2019-11-27 14:39] LABS: POTASSIUM 4.8 mmol/L (3.5-5.1)
[2019-11-27 14:40] LABS: CALCIUM 9.8 mg/dL (8.3-10.5)
[2019-11-27 14:43] LABS: TOTAL BILIRUBIN 0.3 mg/dL (0.2-1.2)
[2019-11-27 15:26] LABS: BAND 1 % (0-10); LYMPHOCYTE 35 % (20-51); MONOCYTE 15 % (3-10); NEUTROPHILS 45 % (42-75)
[2019-11-27 23:09] LABS: CARCINOEMBRYONIC ANTIGEN 6.1 ng/mL (0.0-5.0)
== END ==
LOC: LAB 14:12
PROVIDERS: Internal Medicine
DX: C18.7 Malignant neoplasm of sigmoid colon (principal); C78.7 Secondary malignant neoplasm of liver and intrahepatic bile duct

== ENCOUNTER → 2019-12-18 | Outpatient (CLI) | payer MEDICARE, BC ==
[2019-12-18 15:37] LABS: ALBUMIN 4.5 g/dL (3.4-4.8); POTASSIUM 4.9 mmol/L (3.5-5.1)
[2019-12-18 15:38] LABS: CALCIUM 10.2 mg/dL (8.3-10.5)
[2019-12-18 15:40] LABS: TOTAL PROTEIN 7.5 g/dL (6.2-8.1)
[2019-12-18 15:41] LABS: TOTAL BILIRUBIN 0.5 mg/dL (0.2-1.2)
[2019-12-18 15:48] LABS: EOS # 0.2 (0.04-0.40); EOS % 1.8 % (0.0-4.0); HEMATOCRIT 46.4 % (42.0-52.0); HEMOGLOBIN 15.1 g/dL (13.5-18.0); MEAN CELL VOLUME 90 fl (78-100); MEAN CORPUSCULAR HEMOGLOBIN 29 pg (27-31); MEAN CORPUSCULAR HGB CONC 33 g/dL (33-37); MEAN PLATELET VOLUME 11.5 fl (7.4-10.4); MONO # 0.3 (0.20-0.80); NEU # 7.5 (1.40-6.50); PLATELET COUNT 286 K/mm3 (130-400); RED BLOOD COUNT 5.15 M/mm3 (4.20-5.60); RED CELL DISTRIBUTION WIDTH 15.6 % (11.5-14.5); WHITE BLOOD COUNT 10.1 K/mm3 (4.8-10.8)
[2019-12-18 23:12] LABS: CARCINOEMBRYONIC ANTIGEN 9.5 ng/mL (0.0-5.0)
== END ==
LOC: LAB 14:58
PROVIDERS: Internal Medicine
DX: C18.7 Malignant neoplasm of sigmoid colon (principal)

== ENCOUNTER → 2020-01-09 | Outpatient (CLI) | payer MEDICARE, BC ==
[2020-01-09 14:07] LABS: HEMOGLOBIN 13.9 g/dL (13.5-18.0); MEAN CELL VOLUME 90 fl (78-100); MEAN CORPUSCULAR HEMOGLOBIN 30 pg (27-31); MEAN CORPUSCULAR HGB CONC 33 g/dL (33-37); MEAN PLATELET VOLUME 10.6 fl (7.4-10.4); PLATELET COUNT 336 K/mm3 (130-400); RED BLOOD COUNT 4.68 M/mm3 (4.20-5.60); RED CELL DISTRIBUTION WIDTH 16.3 % (11.5-14.5); WHITE BLOOD COUNT 8.8 K/mm3 (4.8-10.8)
[2020-01-09 14:24] LABS: ALBUMIN 4.3 g/dL (3.4-4.8); POTASSIUM 4.3 mmol/L (3.5-5.1)
[2020-01-09 14:26] LABS: CALCIUM 9.3 mg/dL (8.3-10.5)
[2020-01-09 14:27] LABS: TOTAL PROTEIN 6.8 g/dL (6.2-8.1)
[2020-01-09 14:29] LABS: TOTAL BILIRUBIN 0.9 mg/dL (0.2-1.2)
[2020-01-09 15:48] LABS: NEUTROPHILS 49 % (42-75)
[2020-01-09 15:49] LABS: LYMPHOCYTE 36 % (20-51); MONOCYTE 12 % (3-10)
[2020-01-12 00:22] LABS: CARCINOEMBRYONIC ANTIGEN 11.2 ng/mL (0.0-5.0)
== END ==
LOC: LAB 13:33
PROVIDERS: Internal Medicine
DX: C18.7 Malignant neoplasm of sigmoid colon (principal); R97.8 Other abnormal tumor markers

== ENCOUNTER → 2020-03-04 | Outpatient (CLI) | payer MEDICARE, BC ==
[2020-03-04 14:56] LABS: HEMATOCRIT 41.5 % (42.0-52.0); HEMOGLOBIN 13.6 g/dL (13.5-18.0); MEAN CELL VOLUME 89 fl (78-100); MEAN CORPUSCULAR HEMOGLOBIN 29 pg (27-31); MEAN CORPUSCULAR HGB CONC 33 g/dL (33-37); MEAN PLATELET VOLUME 10.3 fl (7.4-10.4); PLATELET COUNT 411 K/mm3 (130-400); RED BLOOD COUNT 4.65 M/mm3 (4.20-5.60); RED CELL DISTRIBUTION WIDTH 15.9 % (11.5-14.5); WHITE BLOOD COUNT 5.2 K/mm3 (4.8-10.8)
[2020-03-04 15:09] LABS: ALBUMIN 4.1 g/dL (3.4-4.8); POTASSIUM 4.4 mmol/L (3.5-5.1)
[2020-03-04 15:10] LABS: CALCIUM 9.2 mg/dL (8.3-10.5)
[2020-03-04 15:12] LABS: LYMPHOCYTE 38 % (20-51); MONOCYTE 13 % (3-10); NEUTROPHILS 45 % (42-75)
[2020-03-04 15:15] LABS: TOTAL BILIRUBIN 0.3 mg/dL (0.2-1.2)
[2020-03-04 15:20] LABS: MAGNESIUM 1.67 mg/dL (1.60-2.60)
[2020-03-05 04:30] LABS: CARCINOEMBRYONIC ANTIGEN 9.1 ng/mL (0.0-5.0)
== END ==
LOC: LAB 14:40
PROVIDERS: Internal Medicine
DX: C18.7 Malignant neoplasm of sigmoid colon (principal); R97.8 Other abnormal tumor markers

== ENCOUNTER → 2020-03-18 | Outpatient (CLI) | payer MEDICARE, BC ==
[2020-03-18 14:51] LABS: HEMATOCRIT 43.5 % (42.0-52.0); HEMOGLOBIN 14.1 g/dL (13.5-18.0); MEAN CELL VOLUME 89 fl (78-100); MEAN CORPUSCULAR HEMOGLOBIN 29 pg (27-31); MEAN CORPUSCULAR HGB CONC 32 g/dL (33-37); MEAN PLATELET VOLUME 10.1 fl (7.4-10.4); PLATELET COUNT 415 K/mm3 (130-400); RED BLOOD COUNT 4.88 M/mm3 (4.20-5.60); RED CELL DISTRIBUTION WIDTH 16.8 % (11.5-14.5); WHITE BLOOD COUNT 6.2 K/mm3 (4.8-10.8)
[2020-03-18 14:57] LABS: ALBUMIN 4.2 g/dL (3.4-4.8); POTASSIUM 4.5 mmol/L (3.5-5.1)
[2020-03-18 14:58] LABS: CALCIUM 9.4 mg/dL (8.3-10.5)
[2020-03-18 15:01] LABS: TOTAL BILIRUBIN 0.2 mg/dL (0.2-1.2)
[2020-03-18 15:06] LABS: MAGNESIUM 1.8 mg/dL (1.60-2.60)
[2020-03-18 15:58] LABS: LYMPHOCYTE 42 % (20-51); MONOCYTE 17 % (3-10); NEUTROPHILS 36 % (42-75)
== END ==
LOC: LAB 14:21
PROVIDERS: Internal Medicine
DX: C18.7 Malignant neoplasm of sigmoid colon (principal); R97.8 Other abnormal tumor markers

== ENCOUNTER → 2020-04-01 | Outpatient (CLI) | payer MEDICARE, BC ==
[2020-04-01 15:51] LABS: POTASSIUM 3.8 mmol/L (3.5-5.1)
[2020-04-01 15:52] LABS: CALCIUM 8.6 mg/dL (8.3-10.5)
[2020-04-01 15:53] LABS: TOTAL PROTEIN 6.6 g/dL (6.2-8.1)
[2020-04-01 15:55] LABS: TOTAL BILIRUBIN 0.2 mg/dL (0.2-1.2)
[2020-04-01 16:00] LABS: MAGNESIUM 1.6 mg/dL (1.60-2.60)
[2020-04-01 16:01] LABS: HEMATOCRIT 40.8 % (42.0-52.0); HEMOGLOBIN 13.4 g/dL (13.5-18.0); MEAN CELL VOLUME 89 fl (78-100); MEAN CORPUSCULAR HEMOGLOBIN 29 pg (27-31); MEAN CORPUSCULAR HGB CONC 33 g/dL (33-37); MEAN PLATELET VOLUME 10.8 fl (7.4-10.4); PLATELET COUNT 381 K/mm3 (130-400); RED BLOOD COUNT 4.58 M/mm3 (4.20-5.60); RED CELL DISTRIBUTION WIDTH 16.9 % (11.5-14.5); WHITE BLOOD COUNT 6.1 K/mm3 (4.8-10.8)
[2020-04-01 16:44] LABS: LYMPHOCYTE 35 % (20-51); MONOCYTE 18 % (3-10); NEUTROPHILS 42 % (42-75)
[2020-04-02 04:25] LABS: CARCINOEMBRYONIC ANTIGEN 2.8 ng/mL (0.0-5.0)
== END ==
LOC: LAB 14:39
PROVIDERS: Internal Medicine
DX: C18.7 Malignant neoplasm of sigmoid colon (principal); R97.8 Other abnormal tumor markers

== ENCOUNTER → 2020-04-15 | Outpatient (CLI) | payer MEDICARE, BC ==
[2020-04-15 12:23] LABS: HEMATOCRIT 39.4 % (42.0-52.0); HEMOGLOBIN 13.1 g/dL (13.5-18.0); MEAN CELL VOLUME 89 fl (78-100); MEAN CORPUSCULAR HEMOGLOBIN 30 pg (27-31); MEAN CORPUSCULAR HGB CONC 33 g/dL (33-37); PLATELET COUNT 404 K/mm3 (130-400); RED BLOOD COUNT 4.42 M/mm3 (4.20-5.60); RED CELL DISTRIBUTION WIDTH 17.3 % (11.5-14.5); WHITE BLOOD COUNT 6.6 K/mm3 (4.8-10.8)
[2020-04-15 12:37] LABS: ALBUMIN 4.1 g/dL (3.4-4.8)
[2020-04-15 12:38] LABS: POTASSIUM 4.5 mmol/L (3.5-5.1)
[2020-04-15 12:39] LABS: CALCIUM 9.3 mg/dL (8.3-10.5)
[2020-04-15 12:40] LABS: TOTAL PROTEIN 6.7 g/dL (6.2-8.1)
[2020-04-15 12:42] LABS: TOTAL BILIRUBIN 0.3 mg/dL (0.2-1.2)
[2020-04-15 12:47] LABS: MAGNESIUM 1.47 mg/dL (1.60-2.60)
[2020-04-15 14:03] LABS: LYMPHOCYTE 37 % (20-51); MONOCYTE 18 % (3-10); NEUTROPHILS 39 % (42-75)
[2020-04-15 14:04] LABS: POLYCHROMASIA 1+
[2020-04-16 04:24] LABS: CARCINOEMBRYONIC ANTIGEN 2.6 ng/mL (0.0-5.0)
== END ==
LOC: LAB 12:06
PROVIDERS: Internal Medicine
DX: C18.7 Malignant neoplasm of sigmoid colon (principal); R97.8 Other abnormal tumor markers

== ENCOUNTER → 2020-04-29 | Outpatient (CLI) | payer MEDICARE, BC ==
[2020-04-29 15:59] LABS: HEMOGLOBIN 12.6 g/dL (13.5-18.0); MEAN CELL VOLUME 90 fl (78-100); MEAN CORPUSCULAR HEMOGLOBIN 29 pg (27-31); MEAN CORPUSCULAR HGB CONC 32 g/dL (33-37); PLATELET COUNT 403 K/mm3 (130-400); RED BLOOD COUNT 4.32 M/mm3 (4.20-5.60); RED CELL DISTRIBUTION WIDTH 17.6 % (11.5-14.5); WHITE BLOOD COUNT 5.6 K/mm3 (4.8-10.8)
[2020-04-29 16:46] LABS: POTASSIUM 4.2 mmol/L (3.5-5.1)
[2020-04-29 16:47] LABS: CALCIUM 9.2 mg/dL (8.3-10.5)
[2020-04-29 16:48] LABS: TOTAL PROTEIN 6.4 g/dL (6.2-8.1)
[2020-04-29 16:50] LABS: TOTAL BILIRUBIN 0.3 mg/dL (0.2-1.2)
[2020-04-29 16:55] LABS: MAGNESIUM 1.71 mg/dL (1.60-2.60)
[2020-04-29 20:18] LABS: LYMPHOCYTE 43 % (20-51); MONOCYTE 14 % (3-10); NEUTROPHILS 37 % (42-75)
[2020-05-02 13:24] LABS: CARCINOEMBRYONIC ANTIGEN 2.7 ng/mL (0.0-5.0)
== END ==
LOC: LAB 15:29
PROVIDERS: Internal Medicine
DX: C18.7 Malignant neoplasm of sigmoid colon (principal); R97.8 Other abnormal tumor markers

== ENCOUNTER → 2020-05-13 | Outpatient (CLI) | payer MEDICARE, BC ==
[2020-05-13 15:05] LABS: HEMATOCRIT 40.3 % (42.0-52.0); MEAN CELL VOLUME 91 fl (78-100); MEAN CORPUSCULAR HEMOGLOBIN 29 pg (27-31); MEAN CORPUSCULAR HGB CONC 32 g/dL (33-37); MEAN PLATELET VOLUME 10.2 fl (7.4-10.4); PLATELET COUNT 420 K/mm3 (130-400); RED BLOOD COUNT 4.42 M/mm3 (4.20-5.60); RED CELL DISTRIBUTION WIDTH 17.5 % (11.5-14.5); WHITE BLOOD COUNT 5.3 K/mm3 (4.8-10.8)
[2020-05-13 15:16] LABS: ALBUMIN 4.1 g/dL (3.4-4.8); POTASSIUM 4.3 mmol/L (3.5-5.1)
[2020-05-13 15:19] LABS: TOTAL PROTEIN 6.7 g/dL (6.2-8.1)
[2020-05-13 15:20] LABS: TOTAL BILIRUBIN 0.3 mg/dL (0.2-1.2)
[2020-05-13 15:25] LABS: MAGNESIUM 1.54 mg/dL (1.60-2.60)
[2020-05-13 16:05] LABS: LYMPHOCYTE 40 % (20-51); MONOCYTE 18 % (3-10); NEUTROPHILS 35 % (42-75)
[2020-05-13 16:06] LABS: BAND 3 % (0-10)
[2020-05-17 01:40] LABS: CARCINOEMBRYONIC ANTIGEN 2.9 ng/mL (0.0-5.0)
== END ==
LOC: LAB 14:41
PROVIDERS: Internal Medicine
DX: C18.7 Malignant neoplasm of sigmoid colon (principal)

== ENCOUNTER → 2020-05-27 | Outpatient (CLI) | payer MEDICARE, BC ==
[2020-05-27 15:47] LABS: HEMATOCRIT 39.8 % (42.0-52.0); HEMOGLOBIN 13.2 g/dL (13.5-18.0); MEAN CELL VOLUME 91 fl (78-100); MEAN CORPUSCULAR HEMOGLOBIN 30 pg (27-31); MEAN CORPUSCULAR HGB CONC 33 g/dL (33-37); MEAN PLATELET VOLUME 10.2 fl (7.4-10.4); PLATELET COUNT 398 K/mm3 (130-400); RED BLOOD COUNT 4.39 M/mm3 (4.20-5.60); WHITE BLOOD COUNT 6.4 K/mm3 (4.8-10.8)
[2020-05-27 15:53] LABS: LYMPHOCYTE 41 % (20-51); MONOCYTE 20 % (3-10); NEUTROPHILS 35 % (42-75)
[2020-05-27 15:59] LABS: ALBUMIN 4.3 g/dL (3.4-4.8); POTASSIUM 4.5 mmol/L (3.5-5.1)
[2020-05-27 16:01] LABS: CALCIUM 9.5 mg/dL (8.3-10.5)
[2020-05-27 16:04] LABS: TOTAL BILIRUBIN 0.3 mg/dL (0.2-1.2)
[2020-05-27 16:08] LABS: MAGNESIUM 1.45 mg/dL (1.60-2.60)
[2020-05-31 01:39] LABS: CARCINOEMBRYONIC ANTIGEN 2.5 ng/mL (0.0-5.0)
== END ==
LOC: LAB 15:34
PROVIDERS: Internal Medicine
DX: C18.7 Malignant neoplasm of sigmoid colon (principal); R97.8 Other abnormal tumor markers

== ENCOUNTER → 2020-06-24 | Outpatient (CLI) | payer MEDICARE, BC ==
[2020-06-24 16:16] LABS: HEMATOCRIT 37.2 % (42.0-52.0); HEMOGLOBIN 12.2 g/dL (13.5-18.0); MEAN CELL VOLUME 91 fl (78-100); MEAN CORPUSCULAR HEMOGLOBIN 30 pg (27-31); MEAN CORPUSCULAR HGB CONC 33 g/dL (33-37); MEAN PLATELET VOLUME 10.4 fl (7.4-10.4); PLATELET COUNT 431 K/mm3 (130-400); RED BLOOD COUNT 4.09 M/mm3 (4.20-5.60); RED CELL DISTRIBUTION WIDTH 17.4 % (11.5-14.5); WHITE BLOOD COUNT 5.7 K/mm3 (4.8-10.8)
[2020-06-24 16:19] LABS: POTASSIUM 4.1 mmol/L (3.5-5.1)
[2020-06-24 16:20] LABS: CALCIUM 9.1 mg/dL (8.3-10.5)
[2020-06-24 16:21] LABS: TOTAL PROTEIN 6.8 g/dL (6.2-8.1)
[2020-06-24 16:23] LABS: TOTAL BILIRUBIN 0.2 mg/dL (0.2-1.2)
[2020-06-24 16:28] LABS: MAGNESIUM 1.47 mg/dL (1.60-2.60)
[2020-06-24 16:43] LABS: LYMPHOCYTE 42 % (20-51); MONOCYTE 16 % (3-10); NEUTROPHILS 34 % (42-75)
[2020-06-25 04:52] LABS: CARCINOEMBRYONIC ANTIGEN 3.2 ng/mL (0.0-5.0)
== END ==
LOC: LAB 15:34
PROVIDERS: Internal Medicine
DX: C18.7 Malignant neoplasm of sigmoid colon (principal); R97.8 Other abnormal tumor markers

== ENCOUNTER → 2020-07-07 | Outpatient (CLI) | payer MEDICARE, BC ==
[2020-07-07 14:12] LABS: HEMATOCRIT 37.7 % (42.0-52.0); HEMOGLOBIN 12.2 g/dL (13.5-18.0); MEAN CELL VOLUME 91 fl (78-100); MEAN CORPUSCULAR HEMOGLOBIN 29 pg (27-31); MEAN CORPUSCULAR HGB CONC 32 g/dL (33-37); MEAN PLATELET VOLUME 9.9 fl (7.4-10.4); PLATELET COUNT 420 K/mm3 (130-400); RED BLOOD COUNT 4.16 M/mm3 (4.20-5.60); RED CELL DISTRIBUTION WIDTH 16.6 % (11.5-14.5); WHITE BLOOD COUNT 6.1 K/mm3 (4.8-10.8)
[2020-07-07 14:25] LABS: ALBUMIN 3.9 g/dL (3.4-4.8); POTASSIUM 4.8 mmol/L (3.5-5.1)
[2020-07-07 14:27] LABS: CALCIUM 9.1 mg/dL (8.3-10.5)
[2020-07-07 14:28] LABS: TOTAL PROTEIN 6.7 g/dL (6.2-8.1)
[2020-07-07 14:30] LABS: TOTAL BILIRUBIN 0.2 mg/dL (0.2-1.2)
[2020-07-07 14:33] LABS: LYMPHOCYTE 38 % (20-51); MONOCYTE 16 % (3-10); NEUTROPHILS 45 % (42-75)
[2020-07-07 14:34] LABS: MAGNESIUM 1.42 mg/dL (1.60-2.60); TARGET CELLS 1+
[2020-07-08 03:58] LABS: CARCINOEMBRYONIC ANTIGEN 3.2 ng/mL (0.0-5.0)
== END ==
LOC: LAB 13:41
PROVIDERS: Internal Medicine
DX: C18.7 Malignant neoplasm of sigmoid colon (principal)

== ENCOUNTER → 2020-07-22 | Outpatient (CLI) | payer MEDICARE, BC ==
[2020-07-22 15:00] LABS: HEMATOCRIT 38.8 % (42.0-52.0); HEMOGLOBIN 12.5 g/dL (13.5-18.0); MEAN CELL VOLUME 90 fl (78-100); MEAN CORPUSCULAR HEMOGLOBIN 29 pg (27-31); MEAN CORPUSCULAR HGB CONC 32 g/dL (33-37); MEAN PLATELET VOLUME 9.7 fl (7.4-10.4); PLATELET COUNT 459 K/mm3 (130-400); RED BLOOD COUNT 4.29 M/mm3 (4.20-5.60); RED CELL DISTRIBUTION WIDTH 17.2 % (11.5-14.5); WHITE BLOOD COUNT 6.2 K/mm3 (4.8-10.8)
[2020-07-22 15:10] LABS: LYMPHOCYTE 36 % (20-51); MONOCYTE 19 % (3-10); NEUTROPHILS 40 % (42-75); POTASSIUM 4.5 mmol/L (3.5-5.1)
[2020-07-22 15:11] LABS: CALCIUM 8.9 mg/dL (8.3-10.5)
[2020-07-22 15:12] LABS: TOTAL PROTEIN 6.6 g/dL (6.2-8.1)
[2020-07-22 15:14] LABS: TOTAL BILIRUBIN 0.1 mg/dL (0.2-1.2)
[2020-07-22 15:18] LABS: MAGNESIUM 1.48 mg/dL (1.60-2.60)
[2020-07-23 04:42] LABS: CARCINOEMBRYONIC ANTIGEN 3.9 ng/mL (0.0-5.0)
== END ==
LOC: LAB 14:45
PROVIDERS: Internal Medicine
DX: C18.7 Malignant neoplasm of sigmoid colon (principal); R97.8 Other abnormal tumor markers

== ENCOUNTER → 2020-08-05 | Outpatient (CLI) | payer MEDICARE, BC ==
[2020-08-05 14:30] LABS: HEMATOCRIT 40.9 % (42.0-52.0); HEMOGLOBIN 13.2 g/dL (13.5-18.0); MEAN CELL VOLUME 91 fl (78-100); MEAN CORPUSCULAR HEMOGLOBIN 29 pg (27-31); MEAN CORPUSCULAR HGB CONC 32 g/dL (33-37); PLATELET COUNT 409 K/mm3 (130-400); RED BLOOD COUNT 4.51 M/mm3 (4.20-5.60); RED CELL DISTRIBUTION WIDTH 17.2 % (11.5-14.5); WHITE BLOOD COUNT 7.2 K/mm3 (4.8-10.8)
[2020-08-05 14:41] LABS: ALBUMIN 4.2 g/dL (3.4-4.8); LYMPHOCYTE 36 % (20-51); MONOCYTE 16 % (3-10); NEUTROPHILS 43 % (42-75)
[2020-08-05 14:42] LABS: POTASSIUM 5.1 mmol/L (3.5-5.1)
[2020-08-05 14:43] LABS: CALCIUM 9.6 mg/dL (8.3-10.5)
[2020-08-05 14:44] LABS: TOTAL PROTEIN 6.9 g/dL (6.2-8.1)
[2020-08-05 14:46] LABS: TOTAL BILIRUBIN 0.3 mg/dL (0.2-1.2)
[2020-08-05 14:50] LABS: MAGNESIUM 1.57 mg/dL (1.60-2.60)
[2020-08-06 04:33] LABS: CARCINOEMBRYONIC ANTIGEN 4.9 ng/mL (0.0-5.0)
== END ==
LOC: LAB 14:10
PROVIDERS: Internal Medicine
DX: C18.7 Malignant neoplasm of sigmoid colon (principal); R97.8 Other abnormal tumor markers

== ENCOUNTER → 2020-08-19 | Outpatient (CLI) | payer MEDICARE, BC ==
[2020-08-19 11:59] LABS: POTASSIUM 4.2 mmol/L (3.5-5.1)
[2020-08-19 12:00] LABS: CALCIUM 9.1 mg/dL (8.3-10.5)
[2020-08-19 12:02] LABS: TOTAL PROTEIN 6.6 g/dL (6.2-8.1)
[2020-08-19 12:03] LABS: TOTAL BILIRUBIN 0.2 mg/dL (0.2-1.2)
[2020-08-19 12:05] LABS: HEMATOCRIT 39.1 % (42.0-52.0); HEMOGLOBIN 12.6 g/dL (13.5-18.0); MEAN CELL VOLUME 90 fl (78-100); MEAN CORPUSCULAR HEMOGLOBIN 29 pg (27-31); MEAN CORPUSCULAR HGB CONC 32 g/dL (33-37); MEAN PLATELET VOLUME 9.9 fl (7.4-10.4); PLATELET COUNT 464 K/mm3 (130-400); RED BLOOD COUNT 4.35 M/mm3 (4.20-5.60); WHITE BLOOD COUNT 7.8 K/mm3 (4.8-10.8)
[2020-08-19 12:22] LABS: LYMPHOCYTE 35 % (20-51); MONOCYTE 13 % (3-10); NEUTROPHILS 46 % (42-75)
[2020-08-20 04:01] LABS: CARCINOEMBRYONIC ANTIGEN 6.7 ng/mL (0.0-5.0)
[2020-08-22 11:43] LABS: MAGNESIUM 1.51 mg/dL (1.60-2.60)
== END ==
LOC: LAB 11:33
PROVIDERS: Internal Medicine
DX: C18.7 Malignant neoplasm of sigmoid colon (principal); R97.8 Other abnormal tumor markers

== ENCOUNTER → 2020-09-01 | Outpatient (CLI) | payer MEDICARE, BC ==
[2020-09-01 15:34] LABS: HEMATOCRIT 39.9 % (42.0-52.0); MEAN CELL VOLUME 89 fl (78-100); MEAN CORPUSCULAR HEMOGLOBIN 29 pg (27-31); MEAN CORPUSCULAR HGB CONC 33 g/dL (33-37); MEAN PLATELET VOLUME 10.3 fl (7.4-10.4); PLATELET COUNT 458 K/mm3 (130-400); RED BLOOD COUNT 4.49 M/mm3 (4.20-5.60); RED CELL DISTRIBUTION WIDTH 16.7 % (11.5-14.5); WHITE BLOOD COUNT 7.1 K/mm3 (4.8-10.8)
[2020-09-01 15:43] LABS: ALBUMIN 4.2 g/dL (3.4-4.8); POTASSIUM 4.1 mmol/L (3.5-5.1)
[2020-09-01 15:44] LABS: CALCIUM 9.1 mg/dL (8.3-10.5)
[2020-09-01 15:45] LABS: TOTAL PROTEIN 6.8 g/dL (6.2-8.1)
[2020-09-01 15:47] LABS: TOTAL BILIRUBIN 0.2 mg/dL (0.2-1.2)
[2020-09-01 15:51] LABS: MAGNESIUM 1.42 mg/dL (1.60-2.60)
[2020-09-01 16:54] LABS: LYMPHOCYTE 55 % (20-51); MONOCYTE 16 % (3-10); NEUTROPHILS 22 % (42-75)
== END ==
LOC: LAB 15:01
PROVIDERS: Internal Medicine
DX: C18.7 Malignant neoplasm of sigmoid colon (principal)

== ENCOUNTER → 2020-09-16 | Outpatient (CLI) | payer MEDICARE, BC ==
[2020-09-16 15:41] LABS: HEMATOCRIT 43.6 % (42.0-52.0); MEAN CELL VOLUME 89 fl (78-100); MEAN CORPUSCULAR HEMOGLOBIN 29 pg (27-31); MEAN CORPUSCULAR HGB CONC 32 g/dL (33-37); MEAN PLATELET VOLUME 10.2 fl (7.4-10.4); PLATELET COUNT 430 K/mm3 (130-400); RED CELL DISTRIBUTION WIDTH 17.1 % (11.5-14.5); WHITE BLOOD COUNT 6.9 K/mm3 (4.8-10.8)
[2020-09-16 15:45] LABS: ALBUMIN 4.3 g/dL (3.4-4.8); POTASSIUM 4.9 mmol/L (3.5-5.1)
[2020-09-16 15:46] LABS: CALCIUM 9.3 mg/dL (8.3-10.5)
[2020-09-16 15:47] LABS: LYMPHOCYTE 37 % (20-51); MONOCYTE 17 % (3-10); NEUTROPHILS 45 % (42-75)
[2020-09-16 15:49] LABS: TOTAL BILIRUBIN 0.2 mg/dL (0.2-1.2)
[2020-09-16 15:54] LABS: MAGNESIUM 1.63 mg/dL (1.60-2.60)
[2020-09-20 04:57] LABS: CARCINOEMBRYONIC ANTIGEN 12.3 ng/mL (0.0-5.0)
== END ==
LOC: LAB 15:17
PROVIDERS: Internal Medicine
DX: C18.7 Malignant neoplasm of sigmoid colon (principal); R97.8 Other abnormal tumor markers

== ENCOUNTER → 2020-10-24 | Outpatient (CLI) | payer MEDICARE, BC ==
[2020-10-24 13:40] LABS: HEMATOCRIT 43.6 % (42.0-52.0); HEMOGLOBIN 13.7 g/dL (13.5-18.0); MEAN CELL VOLUME 88 fl (78-100); MEAN CORPUSCULAR HEMOGLOBIN 28 pg (27-31); MEAN CORPUSCULAR HGB CONC 31 g/dL (33-37); MEAN PLATELET VOLUME 10.4 fl (7.4-10.4); RED BLOOD COUNT 4.97 M/mm3 (4.20-5.60); RED CELL DISTRIBUTION WIDTH 17.4 % (11.5-14.5); WHITE BLOOD COUNT 12.6 K/mm3 (4.8-10.8)
[2020-10-24 13:43] LABS: PLATELET COUNT 503 K/mm3 (130-400)
[2020-10-24 13:50] LABS: LYMPHOCYTE 30 % (20-51); MONOCYTE 15 % (3-10); NEUTROPHILS 51 % (42-75)
[2020-10-24 13:51] LABS: ALBUMIN 4.2 g/dL (3.4-4.8); POTASSIUM 4.9 mmol/L (3.5-5.1)
[2020-10-24 13:52] LABS: CALCIUM 9.6 mg/dL (8.3-10.5)
[2020-10-24 13:53] LABS: TOTAL PROTEIN 7.7 g/dL (6.2-8.1)
[2020-10-24 13:55] LABS: TOTAL BILIRUBIN 0.3 mg/dL (0.2-1.2)
[2020-10-24 14:00] LABS: MAGNESIUM 1.69 mg/dL (1.60-2.60)
[2020-10-25 05:01] LABS: CARCINOEMBRYONIC ANTIGEN 37.4 ng/mL (0.0-5.0)
== END ==
LOC: LAB 13:15
PROVIDERS: Internal Medicine
DX: C18.7 Malignant neoplasm of sigmoid colon (principal); R97.8 Other abnormal tumor markers

== ENCOUNTER → 2020-11-11 | Outpatient (CLI) | payer MEDICARE, BC ==
[2020-11-11 15:08] LABS: HEMATOCRIT 42.8 % (42.0-52.0); HEMOGLOBIN 13.4 g/dL (13.5-18.0); MEAN CELL VOLUME 87 fl (78-100); MEAN CORPUSCULAR HEMOGLOBIN 27 pg (27-31); MEAN CORPUSCULAR HGB CONC 31 g/dL (33-37); MEAN PLATELET VOLUME 10.2 fl (7.4-10.4); PLATELET COUNT 484 K/mm3 (130-400); RED CELL DISTRIBUTION WIDTH 16.7 % (11.5-14.5); WHITE BLOOD COUNT 7.2 K/mm3 (4.8-10.8)
[2020-11-11 15:14] LABS: LYMPHOCYTE 33 % (20-51); NEUTROPHILS 45 % (42-75)
[2020-11-11 15:15] LABS: BAND 1 % (0-10); MONOCYTE 16 % (3-10)
[2020-11-11 15:19] LABS: ALBUMIN 4.1 g/dL (3.4-4.8); POTASSIUM 4.7 mmol/L (3.5-5.1)
[2020-11-11 15:20] LABS: CALCIUM 9.1 mg/dL (8.3-10.5)
[2020-11-11 15:22] LABS: TOTAL PROTEIN 7.2 g/dL (6.2-8.1)
[2020-11-11 15:23] LABS: TOTAL BILIRUBIN 0.2 mg/dL (0.2-1.2)
[2020-11-11 15:28] LABS: MAGNESIUM 1.73 mg/dL (1.60-2.60)
[2020-11-11 23:22] LABS: CARCINOEMBRYONIC ANTIGEN 59.6 ng/mL (0.0-5.0)
== END ==
LOC: LAB 14:47
PROVIDERS: Internal Medicine
DX: C18.9 Malignant neoplasm of colon, unspecified (principal)

== ENCOUNTER → 2020-11-24 | Outpatient (CLI) | payer MEDICARE, BC ==
[2020-11-24 12:33] LABS: HEMOGLOBIN 13.5 g/dL (13.5-18.0); MEAN CELL VOLUME 87 fl (78-100); MEAN CORPUSCULAR HEMOGLOBIN 27 pg (27-31); MEAN CORPUSCULAR HGB CONC 31 g/dL (33-37); MEAN PLATELET VOLUME 9.8 fl (7.4-10.4); PLATELET COUNT 476 K/mm3 (130-400); RED BLOOD COUNT 4.95 M/mm3 (4.20-5.60); RED CELL DISTRIBUTION WIDTH 17.3 % (11.5-14.5)
[2020-11-24 12:57] LABS: ALBUMIN 4.3 g/dL (3.4-4.8); POTASSIUM 4.7 mmol/L (3.5-5.1)
[2020-11-24 12:58] LABS: CALCIUM 9.7 mg/dL (8.3-10.5)
[2020-11-24 12:59] LABS: TOTAL PROTEIN 7.7 g/dL (6.2-8.1)
[2020-11-24 13:01] LABS: TOTAL BILIRUBIN 0.2 mg/dL (0.2-1.2)
[2020-11-24 13:06] LABS: MAGNESIUM 1.78 mg/dL (1.60-2.60)
[2020-11-24 13:22] LABS: LYMPHOCYTE 37 % (20-51); MONOCYTE 16 % (3-10); NEUTROPHILS 41 % (42-75)
[2020-11-24 21:43] LABS: CARCINOEMBRYONIC ANTIGEN 41.3 ng/mL (0.0-5.0)
== END ==
LOC: LAB 12:07
PROVIDERS: Internal Medicine
DX: C18.7 Malignant neoplasm of sigmoid colon (principal)

== ENCOUNTER → 2020-12-09 | Outpatient (CLI) | payer MEDICARE, BC ==
[2020-12-09 15:19] LABS: ALBUMIN 4.1 g/dL (3.4-4.8); POTASSIUM 4.9 mmol/L (3.5-5.1)
[2020-12-09 15:20] LABS: CALCIUM 9.4 mg/dL (8.3-10.5)
[2020-12-09 15:21] LABS: HEMATOCRIT 42.3 % (42.0-52.0); HEMOGLOBIN 13.6 g/dL (13.5-18.0); MEAN CELL VOLUME 85 fl (78-100); MEAN CORPUSCULAR HEMOGLOBIN 27 pg (27-31); MEAN CORPUSCULAR HGB CONC 32 g/dL (33-37); MEAN PLATELET VOLUME 10.2 fl (7.4-10.4); RED BLOOD COUNT 4.97 M/mm3 (4.20-5.60); RED CELL DISTRIBUTION WIDTH 16.9 % (11.5-14.5); WHITE BLOOD COUNT 10.3 K/mm3 (4.8-10.8)
[2020-12-09 15:22] LABS: TOTAL PROTEIN 7.5 g/dL (6.2-8.1)
[2020-12-09 15:23] LABS: TOTAL BILIRUBIN 0.3 mg/dL (0.2-1.2)
[2020-12-09 15:24] LABS: PLATELET COUNT 577 K/mm3 (130-400)
[2020-12-09 15:25] LABS: LYMPHOCYTE 33 % (20-51); MONOCYTE 13 % (3-10)
[2020-12-09 15:26] LABS: NEUTROPHILS 48 % (42-75)
[2020-12-09 15:28] LABS: MAGNESIUM 1.91 mg/dL (1.60-2.60)
== END ==
LOC: LAB 14:44
PROVIDERS: Internal Medicine
DX: C18.7 Malignant neoplasm of sigmoid colon (principal)

== ENCOUNTER → 2020-12-23 | Outpatient (CLI) | payer MEDICARE, BC ==
[2020-12-23 15:43] LABS: HEMATOCRIT 44.1 % (42.0-52.0); HEMOGLOBIN 13.8 g/dL (13.5-18.0); MEAN CELL VOLUME 86 fl (78-100); MEAN CORPUSCULAR HEMOGLOBIN 27 pg (27-31); MEAN CORPUSCULAR HGB CONC 31 g/dL (33-37); MEAN PLATELET VOLUME 10.3 fl (7.4-10.4); PLATELET COUNT 449 K/mm3 (130-400); RED BLOOD COUNT 5.16 M/mm3 (4.20-5.60); RED CELL DISTRIBUTION WIDTH 18.3 % (11.5-14.5); WHITE BLOOD COUNT 8.4 K/mm3 (4.8-10.8)
[2020-12-23 15:52] LABS: ALBUMIN 4.1 g/dL (3.4-4.8)
[2020-12-23 15:53] LABS: POTASSIUM 4.9 mmol/L (3.5-5.1)
[2020-12-23 15:55] LABS: TOTAL PROTEIN 7.6 g/dL (6.2-8.1)
[2020-12-23 15:57] LABS: TOTAL BILIRUBIN 0.2 mg/dL (0.2-1.2)
[2020-12-23 16:02] LABS: MAGNESIUM 2.09 mg/dL (1.60-2.60)
[2020-12-23 16:08] LABS: LYMPHOCYTE 39 % (20-51); MONOCYTE 12 % (3-10); NEUTROPHILS 44 % (42-75); OVALOCYTES 1+; SCHISTOCYTES 1+; TARGET CELLS 1+
[2020-12-26 22:33] LABS: CARCINOEMBRYONIC ANTIGEN 40.9 ng/mL (0.0-5.0)
== END ==
LOC: LAB 15:27
PROVIDERS: Internal Medicine
DX: C18.9 Malignant neoplasm of colon, unspecified (principal); R97.8 Other abnormal tumor markers

== ENCOUNTER → 2021-01-06 | Outpatient (CLI) | payer MEDICARE, BC ==
[2021-01-06 15:04] LABS: HEMATOCRIT 45.5 % (42.0-52.0); HEMOGLOBIN 14.5 g/dL (13.5-18.0); MEAN CELL VOLUME 85 fl (78-100); MEAN CORPUSCULAR HEMOGLOBIN 27 pg (27-31); MEAN CORPUSCULAR HGB CONC 32 g/dL (33-37); MEAN PLATELET VOLUME 10.5 fl (7.4-10.4); PLATELET COUNT 378 K/mm3 (130-400); RED BLOOD COUNT 5.37 M/mm3 (4.20-5.60); RED CELL DISTRIBUTION WIDTH 18.6 % (11.5-14.5); WHITE BLOOD COUNT 8.7 K/mm3 (4.8-10.8)
[2021-01-06 15:08] LABS: ALBUMIN 4.2 g/dL (3.4-4.8); POTASSIUM 4.8 mmol/L (3.5-5.1)
[2021-01-06 15:09] LABS: CALCIUM 9.2 mg/dL (8.3-10.5)
[2021-01-06 15:10] LABS: TOTAL PROTEIN 7.6 g/dL (6.2-8.1)
[2021-01-06 15:12] LABS: TOTAL BILIRUBIN 0.3 mg/dL (0.2-1.2)
[2021-01-06 15:16] LABS: MAGNESIUM 2.07 mg/dL (1.60-2.60)
[2021-01-06 15:24] LABS: LYMPHOCYTE 39 % (20-51); MONOCYTE 16 % (3-10); NEUTROPHILS 39 % (42-75)
[2021-01-06 22:09] LABS: CARCINOEMBRYONIC ANTIGEN 5.5 ng/mL (0.0-5.0)
== END ==
LOC: LAB 14:40
PROVIDERS: Internal Medicine
DX: C18.9 Malignant neoplasm of colon, unspecified (principal); R97.8 Other abnormal tumor markers

== ENCOUNTER → 2021-01-20 | Outpatient (CLI) | payer MEDICARE, BC ==
[~2021-01-20] MED LIST changes: +COL-RITE100 M1 PO; +GLUCOPHAGE XR500 M2 PO; +MAGNESIUM250 M1 PO; +MAGNESIUM400 MG PO
[2021-01-20 15:01] LABS: HEMATOCRIT 44.5 % (42.0-52.0); HEMOGLOBIN 14.1 g/dL (13.5-18.0); MEAN CELL VOLUME 86 fl (78-100); MEAN CORPUSCULAR HEMOGLOBIN 27 pg (27-31); MEAN CORPUSCULAR HGB CONC 32 g/dL (33-37); PLATELET COUNT 422 K/mm3 (130-400); RED BLOOD COUNT 5.16 M/mm3 (4.20-5.60); RED CELL DISTRIBUTION WIDTH 19.6 % (11.5-14.5); WHITE BLOOD COUNT 8.8 K/mm3 (4.8-10.8)
[2021-01-20 15:16] LABS: ALBUMIN 4.1 g/dL (3.4-4.8); POTASSIUM 4.7 mmol/L (3.5-5.1)
[2021-01-20 15:18] LABS: CALCIUM 9.1 mg/dL (8.3-10.5)
[2021-01-20 15:19] LABS: TOTAL PROTEIN 7.9 g/dL (6.2-8.1)
[2021-01-20 15:21] LABS: TOTAL BILIRUBIN 0.2 mg/dL (0.2-1.2)
[2021-01-20 15:25] LABS: MAGNESIUM 2.12 mg/dL (1.60-2.60)
[2021-01-20 16:08] LABS: LYMPHOCYTE 46 % (20-51); MONOCYTE 10 % (3-10); NEUTROPHILS 40 % (42-75)
[2021-01-20 16:09] LABS: NUCLEATED RED BLOOD CELL 1 (0-6)
[2021-01-20 22:11] LABS: CARCINOEMBRYONIC ANTIGEN 45.2 ng/mL (0.0-5.0)
== END ==
LOC: LAB 14:31
PROVIDERS: Internal Medicine
DX: C18.7 Malignant neoplasm of sigmoid colon (principal); R97.8 Other abnormal tumor markers

== ENCOUNTER → 2021-02-03 | Outpatient (CLI) | payer MEDICARE, BC ==
[2021-02-03 15:20] LABS: HEMATOCRIT 44.9 % (42.0-52.0); HEMOGLOBIN 14.3 g/dL (13.5-18.0); MEAN CELL VOLUME 85 fl (78-100); MEAN CORPUSCULAR HEMOGLOBIN 27 pg (27-31); MEAN CORPUSCULAR HGB CONC 32 g/dL (33-37); MEAN PLATELET VOLUME 10.2 fl (7.4-10.4); PLATELET COUNT 396 K/mm3 (130-400); RED BLOOD COUNT 5.27 M/mm3 (4.20-5.60); RED CELL DISTRIBUTION WIDTH 19.8 % (11.5-14.5); WHITE BLOOD COUNT 8.7 K/mm3 (4.8-10.8)
[2021-02-03 15:32] LABS: ALBUMIN 4.2 g/dL (3.4-4.8)
[2021-02-03 15:33] LABS: POTASSIUM 4.8 mmol/L (3.5-5.1)
[2021-02-03 15:34] LABS: CALCIUM 9.5 mg/dL (8.3-10.5)
[2021-02-03 15:35] LABS: TOTAL PROTEIN 8.1 g/dL (6.2-8.1)
[2021-02-03 15:37] LABS: TOTAL BILIRUBIN 0.3 mg/dL (0.2-1.2)
[2021-02-03 16:42] LABS: LYMPHOCYTE 45 % (20-51); MONOCYTE 19 % (3-10); NEUTROPHILS 31 % (42-75); TARGET CELLS 1+; TEAR DROP CELLS 2+
[2021-02-03 23:52] LABS: CARCINOEMBRYONIC ANTIGEN 37.6 ng/mL (0.0-5.0)
== END ==
LOC: LAB 14:51
PROVIDERS: Internal Medicine
DX: C18.7 Malignant neoplasm of sigmoid colon (principal); R97.8 Other abnormal tumor markers

== ENCOUNTER → 2021-02-17 | Outpatient (CLI) | payer MEDICARE, BC ==
[2021-02-17 15:16] LABS: HEMATOCRIT 44.9 % (42.0-52.0); HEMOGLOBIN 14.3 g/dL (13.5-18.0); MEAN CELL VOLUME 86 fl (78-100); MEAN CORPUSCULAR HEMOGLOBIN 27 pg (27-31); MEAN CORPUSCULAR HGB CONC 32 g/dL (33-37); MEAN PLATELET VOLUME 10.6 fl (7.4-10.4); PLATELET COUNT 401 K/mm3 (130-400); RED BLOOD COUNT 5.22 M/mm3 (4.20-5.60); RED CELL DISTRIBUTION WIDTH 20.6 % (11.5-14.5); WHITE BLOOD COUNT 9.5 K/mm3 (4.8-10.8)
[2021-02-17 15:30] LABS: ALBUMIN 4.2 g/dL (3.4-4.8); POTASSIUM 4.8 mmol/L (3.5-5.1)
[2021-02-17 15:31] LABS: CALCIUM 9.7 mg/dL (8.3-10.5)
[2021-02-17 15:33] LABS: TOTAL PROTEIN 8.5 g/dL (6.2-8.1)
[2021-02-17 15:34] LABS: TOTAL BILIRUBIN 0.2 mg/dL (0.2-1.2)
[2021-02-17 15:39] LABS: MAGNESIUM 2.09 mg/dL (1.60-2.60)
[2021-02-17 17:40] LABS: LYMPHOCYTE 43 % (20-51); MONOCYTE 10 % (3-10); NEUTROPHILS 44 % (42-75)
[2021-02-17 21:38] LABS: CARCINOEMBRYONIC ANTIGEN 29.9 ng/mL (0.0-5.0)
== END ==
LOC: LAB 14:33
PROVIDERS: Internal Medicine
DX: C18.7 Malignant neoplasm of sigmoid colon (principal); R97.8 Other abnormal tumor markers

== ENCOUNTER → 2021-03-03 | Outpatient (CLI) | payer MEDICARE, BC ==
[2021-03-03 14:59] LABS: HEMATOCRIT 46.3 % (42.0-52.0); HEMOGLOBIN 14.6 g/dL (13.5-18.0); MEAN CELL VOLUME 87 fl (78-100); MEAN CORPUSCULAR HEMOGLOBIN 27 pg (27-31); MEAN CORPUSCULAR HGB CONC 32 g/dL (33-37); MEAN PLATELET VOLUME 10.4 fl (7.4-10.4); PLATELET COUNT 357 K/mm3 (130-400); RED BLOOD COUNT 5.32 M/mm3 (4.20-5.60); RED CELL DISTRIBUTION WIDTH 20.8 % (11.5-14.5); WHITE BLOOD COUNT 7.9 K/mm3 (4.8-10.8)
[2021-03-03 15:02] LABS: ALBUMIN 4.2 g/dL (3.4-4.8); POTASSIUM 4.8 mmol/L (3.5-5.1)
[2021-03-03 15:03] LABS: CALCIUM 9.5 mg/dL (8.3-10.5)
[2021-03-03 15:05] LABS: TOTAL PROTEIN 8.4 g/dL (6.2-8.1)
[2021-03-03 15:06] LABS: TOTAL BILIRUBIN 0.2 mg/dL (0.2-1.2)
[2021-03-03 15:11] LABS: MAGNESIUM 2.1 mg/dL (1.60-2.60)
[2021-03-03 15:55] LABS: LYMPHOCYTE 55 % (20-51); MONOCYTE 11 % (3-10); NEUTROPHILS 29 % (42-75); POLYCHROMASIA 1+
[2021-03-04 00:03] LABS: CARCINOEMBRYONIC ANTIGEN 26.2 ng/mL (0.0-5.0)
== END ==
LOC: LAB 14:25
PROVIDERS: Internal Medicine
DX: C18.7 Malignant neoplasm of sigmoid colon (principal); R97.8 Other abnormal tumor markers

== ENCOUNTER → 2021-03-17 | Outpatient (CLI) | payer MEDICARE, BC ==
[2021-03-17 10:27] LABS: HEMATOCRIT 45.5 % (42.0-52.0); HEMOGLOBIN 14.5 g/dL (13.5-18.0); MEAN CELL VOLUME 87 fl (78-100); MEAN CORPUSCULAR HEMOGLOBIN 28 pg (27-31); MEAN CORPUSCULAR HGB CONC 32 g/dL (33-37); MEAN PLATELET VOLUME 10.4 fl (7.4-10.4); PLATELET COUNT 371 K/mm3 (130-400); RED BLOOD COUNT 5.26 M/mm3 (4.20-5.60); RED CELL DISTRIBUTION WIDTH 20.6 % (11.5-14.5); WHITE BLOOD COUNT 8.9 K/mm3 (4.8-10.8)
[2021-03-17 10:46] LABS: CALCIUM 9.5 mg/dL (8.3-10.5)
[2021-03-17 10:47] LABS: TOTAL PROTEIN 8.1 g/dL (6.2-8.1)
[2021-03-17 10:49] LABS: TOTAL BILIRUBIN 0.3 mg/dL (0.2-1.2)
[2021-03-17 10:54] LABS: MAGNESIUM 2.01 mg/dL (1.60-2.60)
[2021-03-17 12:10] LABS: LYMPHOCYTE 41 % (20-51); MONOCYTE 17 % (3-10); NEUTROPHILS 38 % (42-75)
[2021-03-17 12:11] LABS: TARGET CELLS 1+
[2021-03-17 23:03] LABS: CARCINOEMBRYONIC ANTIGEN 27.6 ng/mL (0.0-5.0)
== END ==
LOC: LAB 10:07
PROVIDERS: Internal Medicine
DX: C18.9 Malignant neoplasm of colon, unspecified (principal); E03.9 Hypothyroidism, unspecified; R97.8 Other abnormal tumor markers

== ENCOUNTER → 2021-03-31 | Outpatient (CLI) | payer MEDICARE, BC ==
[2021-03-31 14:25] LABS: BASO # 0.09 (0.02-0.10); EOS # 0.33 (0.04-0.40); EOS % 3.8 % (0.0-4.0); HEMATOCRIT 46.4 % (42.0-52.0); HEMOGLOBIN 15.1 g/dL (13.5-18.0); LYMPH# 4.24 (1.50-4.00); MEAN CELL VOLUME 87 fl (78-100); MEAN CORPUSCULAR HEMOGLOBIN 28 pg (27-31); MEAN CORPUSCULAR HGB CONC 33 g/dL (33-37); MONO # 1.26 (0.20-0.80); NEU # 2.78 (1.40-6.50); PLATELET COUNT 375 K/mm3 (130-400); RED BLOOD COUNT 5.36 M/mm3 (4.20-5.60); RED CELL DISTRIBUTION WIDTH 19.5 % (11.5-14.5); WHITE BLOOD COUNT 8.7 K/mm3 (4.8-10.8)
[2021-03-31 14:45] LABS: ALBUMIN 4.1 g/dL (3.4-4.8); POTASSIUM 4.9 mmol/L (3.5-5.1)
[2021-03-31 14:47] LABS: CALCIUM 9.6 mg/dL (8.3-10.5)
[2021-03-31 14:48] LABS: TOTAL PROTEIN 8.4 g/dL (6.2-8.1)
[2021-03-31 14:50] LABS: TOTAL BILIRUBIN 0.2 mg/dL (0.2-1.2)
[2021-03-31 14:54] LABS: MAGNESIUM 2.04 mg/dL (1.60-2.60)
[2021-03-31 21:53] LABS: CARCINOEMBRYONIC ANTIGEN 24.2 ng/mL (0.0-5.0)
== END ==
LOC: LAB 14:09
PROVIDERS: Internal Medicine
DX: C18.7 Malignant neoplasm of sigmoid colon (principal); R97.8 Other abnormal tumor markers

== ENCOUNTER → 2021-04-14 | Outpatient (CLI) | payer MEDICARE, BC ==
[2021-04-14 10:39] LABS: BASO # 0.07 (0.02-0.10); EOS # 0.27 (0.04-0.40); EOS % 4.1 % (0.0-4.0); HEMATOCRIT 45.4 % (42.0-52.0); HEMOGLOBIN 14.9 g/dL (13.5-18.0); LYMPH# 3.13 (1.50-4.00); MEAN CELL VOLUME 87 fl (78-100); MEAN CORPUSCULAR HEMOGLOBIN 29 pg (27-31); MEAN CORPUSCULAR HGB CONC 33 g/dL (33-37); MEAN PLATELET VOLUME 9.6 fl (7.4-10.4); NEU # 2.34 (1.40-6.50); PLATELET COUNT 320 K/mm3 (130-400); RED BLOOD COUNT 5.23 M/mm3 (4.20-5.60); WHITE BLOOD COUNT 6.5 K/mm3 (4.8-10.8)
[2021-04-14 10:51] LABS: ALBUMIN 4.1 g/dL (3.4-4.8); POTASSIUM 5.2 mmol/L (3.5-5.1)
[2021-04-14 10:52] LABS: CALCIUM 9.8 mg/dL (8.3-10.5)
[2021-04-14 10:53] LABS: TOTAL PROTEIN 8.4 g/dL (6.2-8.1)
[2021-04-14 10:55] LABS: TOTAL BILIRUBIN 0.3 mg/dL (0.2-1.2)
[2021-04-14 11:00] LABS: MAGNESIUM 2.28 mg/dL (1.60-2.60)
== END ==
LOC: LAB 10:17
PROVIDERS: Internal Medicine
DX: C18.7 Malignant neoplasm of sigmoid colon (principal); R97.8 Other abnormal tumor markers

== ENCOUNTER → 2021-04-28 | Outpatient (CLI) | payer MEDICARE, BC ==
[2021-04-28 13:57] LABS: BASO # 0.09 (0.02-0.10); EOS # 0.35 (0.04-0.40); EOS % 5.9 % (0.0-4.0); HEMATOCRIT 43.1 % (42.0-52.0); HEMOGLOBIN 14.3 g/dL (13.5-18.0); LYMPH# 2.71 (1.50-4.00); MEAN CELL VOLUME 87 fl (78-100); MEAN CORPUSCULAR HEMOGLOBIN 29 pg (27-31); MEAN CORPUSCULAR HGB CONC 33 g/dL (33-37); MEAN PLATELET VOLUME 9.7 fl (7.4-10.4); NEU # 1.97 (1.40-6.50); PLATELET COUNT 371 K/mm3 (130-400); RED BLOOD COUNT 4.96 M/mm3 (4.20-5.60); RED CELL DISTRIBUTION WIDTH 18.7 % (11.5-14.5); WHITE BLOOD COUNT 5.9 K/mm3 (4.8-10.8)
[2021-04-28 14:04] LABS: POTASSIUM 4.8 mmol/L (3.5-5.1)
[2021-04-28 14:06] LABS: CALCIUM 9.4 mg/dL (8.3-10.5)
[2021-04-28 14:07] LABS: TOTAL PROTEIN 8.5 g/dL (6.2-8.1)
[2021-04-28 14:09] LABS: TOTAL BILIRUBIN 0.3 mg/dL (0.2-1.2)
[2021-04-28 23:47] LABS: CARCINOEMBRYONIC ANTIGEN 33.5 ng/mL (0.0-5.0)
== END ==
LOC: LAB 13:28
PROVIDERS: Internal Medicine
DX: C18.7 Malignant neoplasm of sigmoid colon (principal); R97.8 Other abnormal tumor markers

== ENCOUNTER 2021-05-06 14:16 | Emergency (ER) | payer MEDICARE, BC ==
[~2021-05-06 14:16] MED LIST changes: -COL-RITE100 M1 PO; -GLUCOPHAGE XR500 M2 PO; -MAGNESIUM250 M1 PO; -MAGNESIUM400 MG PO
[2021-05-06] MEDS ORDERED: GLUCOPHAGE XR500 M2 PO (14:39)
[2021-05-06] MEDS ORDERED: MAGNESIUM250 M1 PO (14:40)
[2021-05-06] MEDS ORDERED: COL-RITE100 M1 PO (14:40)
[2021-05-06] MEDS ORDERED: MAGNESIUM400 MG PO (14:41)
[2021-05-06 15:25] LABS: BASO # 0.03 (0.02-0.10); EOS # 0.05 (0.04-0.40); EOS % 1.6 % (0.0-4.0); HEMOGLOBIN 13.4 g/dL (13.5-18.0); LYMPH# 0.93 (1.50-4.00); MEAN CELL VOLUME 87 fl (78-100); MEAN CORPUSCULAR HEMOGLOBIN 29 pg (27-31); MEAN CORPUSCULAR HGB CONC 34 g/dL (33-37); MEAN PLATELET VOLUME 10.4 fl (7.4-10.4); MONO # 0.21 (0.20-0.80); PLATELET COUNT 288 K/mm3 (130-400); RED CELL DISTRIBUTION WIDTH 18.2 % (11.5-14.5); WHITE BLOOD COUNT 3.1 K/mm3 (4.8-10.8)
[2021-05-06 15:36] LABS: ALBUMIN 3.5 g/dL (3.4-4.8); POTASSIUM 4.4 mmol/L (3.5-5.1)
[2021-05-06 15:37] LABS: CALCIUM 8.8 mg/dL (8.3-10.5)
[2021-05-06 15:38] LABS: TOTAL PROTEIN 7.3 g/dL (6.2-8.1)
[2021-05-06 15:40] LABS: TOTAL BILIRUBIN 0.6 mg/dL (0.2-1.2)
[2021-05-06 16:37] LABS: PH-URINE 6.5 (5.0 - 8.0); URINE APPEARANCE CLEAR; URINE BILIRUBIN NEGATIVE (NEGATIVE); URINE BLOOD NEGATIVE (NEGATIVE); URINE COLOR YELLOW; URINE KETONE NEGATIVE (NEGATIVE); URINE LEUKOCYTE ESTERASE NEGATIVE (NEGATIVE); URINE NITRATE NEGATIVE (NEGATIVE); URINE PROTEIN(semi-quant) NEGATIVE (NEGATIVE); URINE UROBILINOGEN NORMAL (NORMAL); URINE WBC 0-1 /hpf (0-3)
[2021-05-06 19:17] VITALS: BP 127/75
== END 2021-05-06 19:34 | disposition home or self-care (01) ==
LOC: ED 14:16
PROVIDERS: Family Medicine
DX: K59.00 Constipation, unspecified (principal); C78.7 Secondary malignant neoplasm of liver and intrahepatic bile duct; E11.9 Type 2 diabetes mellitus without complications; I10 Essential (primary) hypertension; N40.0 Benign prostatic hyperplasia without lower urinary tract symptoms; Z20.822 Contact with and (suspected) exposure to COVID-19; Z87.891 Personal history of nicotine dependence; Z79.899 Other long term (current) drug therapy; Z79.84 Long term (current) use of oral hypoglycemic drugs
CPT/HCPCS: J1644; J1885

== ENCOUNTER → 2021-05-12 | Outpatient (CLI) | payer MEDICARE, BC ==
[~2021-05-12] MED LIST changes: +COL-RITE100 M1 PO; +GLUCOPHAGE XR500 M2 PO; +MAGNESIUM250 M1 PO; +MAGNESIUM400 MG PO
[2021-05-12 12:43] LABS: BASO # 0.09 (0.02-0.10); EOS # 0.35 (0.04-0.40); EOS % 5.7 % (0.0-4.0); HEMATOCRIT 44.1 % (42.0-52.0); HEMOGLOBIN 14.4 g/dL (13.5-18.0); MEAN CELL VOLUME 88 fl (78-100); MEAN CORPUSCULAR HEMOGLOBIN 29 pg (27-31); MEAN CORPUSCULAR HGB CONC 33 g/dL (33-37); MEAN PLATELET VOLUME 9.7 fl (7.4-10.4); MONO # 1.03 (0.20-0.80); NEU # 2.12 (1.40-6.50); PLATELET COUNT 421 K/mm3 (130-400); RED BLOOD COUNT 5.02 M/mm3 (4.20-5.60); RED CELL DISTRIBUTION WIDTH 18.5 % (11.5-14.5); WHITE BLOOD COUNT 6.1 K/mm3 (4.8-10.8)
[2021-05-12 12:51] LABS: CALCIUM 9.7 mg/dL (8.3-10.5)
[2021-05-12 12:52] LABS: TOTAL PROTEIN 8.5 g/dL (6.2-8.1)
[2021-05-12 12:54] LABS: TOTAL BILIRUBIN 0.3 mg/dL (0.2-1.2)
[2021-05-12 12:58] LABS: MAGNESIUM 2.1 mg/dL (1.60-2.60)
== END ==
LOC: LAB 12:06
PROVIDERS: Internal Medicine
DX: C18.7 Malignant neoplasm of sigmoid colon (principal); R97.8 Other abnormal tumor markers

== ENCOUNTER → 2021-06-02 | Outpatient (CLI) | payer MEDICARE, BC ==
[2021-06-02 15:04] LABS: HEMATOCRIT 43.5 % (42.0-52.0); HEMOGLOBIN 14.2 g/dL (13.5-18.0); MEAN CELL VOLUME 88 fl (78-100); MEAN CORPUSCULAR HEMOGLOBIN 29 pg (27-31); MEAN CORPUSCULAR HGB CONC 33 g/dL (33-37); MEAN PLATELET VOLUME 10.1 fl (7.4-10.4); PLATELET COUNT 398 K/mm3 (130-400); RED BLOOD COUNT 4.94 M/mm3 (4.20-5.60); RED CELL DISTRIBUTION WIDTH 18.1 % (11.5-14.5); WHITE BLOOD COUNT 6.5 K/mm3 (4.8-10.8)
[2021-06-02 15:40] LABS: ALBUMIN 3.9 g/dL (3.4-4.8); POTASSIUM 4.8 mmol/L (3.5-5.1)
[2021-06-02 15:41] LABS: CALCIUM 9.6 mg/dL (8.3-10.5)
[2021-06-02 15:43] LABS: TOTAL PROTEIN 8.6 g/dL (6.2-8.1)
[2021-06-02 15:44] LABS: TOTAL BILIRUBIN 0.4 mg/dL (0.2-1.2)
[2021-06-02 15:46] LABS: LYMPHOCYTE 37 % (20-51); MONOCYTE 27 % (3-10); NEUTROPHILS 32 % (42-75)
[2021-06-02 15:47] LABS: TEAR DROP CELLS 2+
[2021-06-02 15:49] LABS: MAGNESIUM 2.03 mg/dL (1.60-2.60)
[2021-06-02 23:26] LABS: CARCINOEMBRYONIC ANTIGEN 40.1 ng/mL (0.0-5.0)
== END ==
LOC: LAB 14:43
PROVIDERS: Internal Medicine
DX: C18.7 Malignant neoplasm of sigmoid colon (principal); R97.8 Other abnormal tumor markers

== ENCOUNTER → 2021-07-26 | Outpatient (CLI) | payer MEDICARE, BC ==
[2021-07-26 10:47] LABS: ALBUMIN 3.8 g/dL (3.4-4.8)
[2021-07-26 10:48] LABS: POTASSIUM 4.9 mmol/L (3.5-5.1)
[2021-07-26 10:49] LABS: CALCIUM 10.1 mg/dL (8.3-10.5)
[2021-07-26 10:50] LABS: TOTAL PROTEIN 8.8 g/dL (6.2-8.1)
[2021-07-26 10:52] LABS: TOTAL BILIRUBIN 0.6 mg/dL (0.2-1.2)
[2021-07-26 10:55] LABS: BASO # 0.06 (0.02-0.10); EOS # 0.26 (0.04-0.40); HEMATOCRIT 41.2 % (42.0-52.0); HEMOGLOBIN 12.9 g/dL (13.5-18.0); LYMPH# 1.86 (1.50-4.00); MEAN CELL VOLUME 88 fl (78-100); MEAN CORPUSCULAR HEMOGLOBIN 28 pg (27-31); MEAN CORPUSCULAR HGB CONC 31 g/dL (33-37); MONO # 1.46 (0.20-0.80); NEU # 5.02 (1.40-6.50); PLATELET COUNT 486 K/mm3 (130-400); RED BLOOD COUNT 4.69 M/mm3 (4.20-5.60); RED CELL DISTRIBUTION WIDTH 15.9 % (11.5-14.5); WHITE BLOOD COUNT 8.7 K/mm3 (4.8-10.8)
[2021-07-26 10:56] LABS: MAGNESIUM 2.07 mg/dL (1.60-2.60)
[2021-07-27 00:10] LABS: CARCINOEMBRYONIC ANTIGEN 173.1 ng/mL (0.0-5.0)
== END ==
LOC: LAB 10:16
PROVIDERS: Internal Medicine
DX: C18.9 Malignant neoplasm of colon, unspecified (principal); R97.8 Other abnormal tumor markers